=== PATIENT | female | born 1990 | race Caucasian/White ===

== ENCOUNTER → 2022-01-30 | Outpatient (CLI) | payer MEDICAID, SELFPAY ==
--- NOTE | 2022-01-30 13:15 | BI_ITS ---
MAMMOGRAPHY - BILATERAL SCREENING REASON FOR EXAM: Female, 31 years old. Routine annual screening examination. PERTINENT HISTORY: Mother with breast cancer. TECHNIQUE: Digital bilateral breast ida (3D mammographic acquisition) in the CC and MLO projections. 2-D mediolateral oblique (MLO) and craniocaudad (CC) views of both breasts were obtained. CAD: Full Field Digital Mammography with Computer Added Detection was performed. COMPARISON: None. Baseline examination. FINDINGS: Breast Composition: The breasts are extremely dense, which lowers the sensitivity of mammography. There are no dominant masses or suspicious calcifications. No other significant abnormalities are identified. BI/SCRN MAMM (CAD)W/IDA BILAT IMPRESSION: Negative screening mammogram. Yearly followup mammogram recommended. (A) ASSESSMENT CATEGORY: BIRADS Category 1: Negative. A letter regarding these results will be sent to the patient by the facility within 30 days. Approximately 10% of breast cancers are not detected by mammography. A normal mammogram should not delay biopsy of a clinically suspicious abnormality. [id number] Electronically Signed: Bolivar Hobbs MD at 13:51 EST ,
== END | disposition home or self-care (01) ==
LOC: OPBI 13:14
PROVIDERS: PCP Family Medicine; Visit Provider Registered Nurse
DX: Z12.31 Encounter for screening mammogram for malignant neoplasm of breast (principal)
CPT/HCPCS: 77063; 77067

== ENCOUNTER → 2022-12-04 | Outpatient (CLI) | payer MEDICAID, SELFPAY ==
[2022-12-04 11:20] LABS: T4 Free Direct 1.03 ng/dL (0.76-1.46); Thyroid Stim Hormone (TSH) 2.09 uIU/mL (0.358-3.74); Vitamin D,25 Hydroxy 47.1 ng/mL
[2022-12-09 22:06] LABS: HPV APTIMA, High Risk Negative (Negative)
== END | disposition home or self-care (01) ==
PROVIDERS: PCP Family Medicine; Referring Provider Registered Nurse; Visit Provider Registered Nurse
DX: R68.89 Other general symptoms and signs (principal); L65.9 Nonscarring hair loss, unspecified; Z12.4 Encounter for screening for malignant neoplasm of cervix
CPT/HCPCS: 36415; 82306; 84439; 84443; 87624; 88175; G0145

== ENCOUNTER → 2023-02-10 | Outpatient (CLI) | payer MEDICAID, SELFPAY ==
[2023-02-13 07:08] LABS: Chlamydia By Nucleic Acid AMP Negative (Negative); Gonococcus By Nucleic Acid AMP Negative (Negative)
== END | disposition home or self-care (01) ==
LOC: LABSPEC 13:06
PROVIDERS: Referring Provider Obstetrics & Gynecology; Visit Provider Obstetrics & Gynecology
DX: Z34.90 Encounter for supervision of normal pregnancy, unspecified, unspecified trimester (principal)
CPT/HCPCS: 87086; 87491; 87591

== ENCOUNTER → 2023-02-18 | Outpatient (CLI) | payer MEDICAID, SELFPAY ==
[2023-02-18 11:15] LABS: Absolute Lymphocyte Count 1.68 X10^3/uL (0.83-4.51); Absolute Neutrophil Count 6.7 X10^3/uL (2.0-7.7); Basophil# 0.03 X10^3/uL; Basophil% 0.3 % (0-1); Eosinophil# 0.07 X10^3/uL; Eosinophils% 0.8 % (0-5); Lymphocyte # 1.68 X10^3/ul (0.83-4.51); Lymphocyte % 18.4 % (19-41); Mean Corpuscular Volume 88.7 fL (81-99); Monocyte# 0.58 X10^3/uL; Monocyte% 6.4 % (0-10); NRBC Flagged by Analyzer 0 % (0-5); Neutrophil # 6.71 X10^3/uL (2.7-7.7); Neutrophil % 73.7 % (47-70); Platelet Count 274 K/mm3 (150-450); RBC Distribution Width CV 12.2 % (11.6-14.6); RBC Distribution Width SD 39.7 fl (35.1-43.9); Red Blood Count 4.51 M/mm3 (4.2-5.4); White Blood Count 9.1 K/mm3 (4.4-11.0)
[2023-02-18 11:57] LABS: NATERA MAILED SPECIMEN
[2023-02-18 12:17] LABS: HIV - WCH Non-Reactive (Nonreactive); Hepatitis B Surface Antigen Non-Reactive (Nonreactive); Hepatitis C Antibody Non-Reactive (Nonreactive); Rubella IgG Reactive (Nonreactive); Syphilis Antibodies Non-reactive
== END | disposition home or self-care (01) ==
PROVIDERS: Referring Provider Obstetrics & Gynecology; Visit Provider Obstetrics & Gynecology
DX: Z34.90 Encounter for supervision of normal pregnancy, unspecified, unspecified trimester (principal)
CPT/HCPCS: 36415; 85025; 86703; 86762; 86780; 86803; 86850; 86900; 86901; 87340

== ENCOUNTER → 2023-07-02 | Outpatient (CLI) | payer MEDICAID, SELFPAY ==
[2023-07-02 10:51] LABS: Absolute Lymphocyte Count 1.53 X10^3/uL (0.83-4.51); Absolute Neutrophil Count 9.7 X10^3/uL (2.0-7.7); Basophil# 0.04 X10^3/uL; Basophil% 0.3 % (0-1); Eosinophil# 0.21 X10^3/uL; Eosinophils% 1.7 % (0-5); Hematocrit 35.7 % (37-47); Hemoglobin 11.9 g/dL (12.0-15.0); Lymphocyte # 1.53 X10^3/ul (0.83-4.51); Lymphocyte % 12.4 % (19-41); Mean Corp Hgb Conc 33.3 g/dL (32-36); Mean Corpuscular Hgb 30.9 pg (27.0-32.0); Mean Corpuscular Volume 92.7 fL (81-99); Mean Platelet Vol. 9.6 fl (6.2-12.0); Monocyte# 0.77 X10^3/uL; Monocyte% 6.3 % (0-10); NRBC Flagged by Analyzer 0 % (0-5); Neutrophil # 9.65 X10^3/uL (2.7-7.7); Neutrophil % 78.5 % (47-70); Platelet Count 218 K/mm3 (150-450); RBC Distribution Width CV 12.9 % (11.6-14.6); RBC Distribution Width SD 43.8 fl (35.1-43.9); Red Blood Count 3.85 M/mm3 (4.2-5.4); White Blood Count 12.3 K/mm3 (4.4-11.0)
[2023-07-02 11:15] LABS: Glucose Challenge Gest 1H 50g 73 mg/dL (70-140)
[2023-07-02 11:45] LABS: ALB/GLOB Ratio 0.8 RATIO (0.9-2.4); AST(SGOT) 20 U/L (15-37); Alanine Aminotransfer ALT/SGPT 15 U/L (13-56); Albumin, Serum 2.7 g/dL (3.2-5.0); Alkaline Phosphatase 74 U/L (45-117); Anion Gap 4 (5-15); BUN 11 mg/dL (7-18); Calcium,Total 8.6 mg/dL (8.5-10.1); Chloride 109 mmol/L (98-107); Creatinine, Serum 0.65 mg/dL (0.55-1.02); EST Glomerular Filtration Rate 114 mL/min (>60); Est Glom Filt Rate - Afr Amer 138 mL/min (>60); Globulin 3.6 g/dL (2.2-4.2); Glucose 73 mg/dL (74-106); Potassium 3.8 mmol/L (3.5-5.1); Protein, Total 6.3 g/dL (6.4-8.2); Sodium Level 138 mmol/L (136-145)
[2023-07-02 14:48] LABS: Protein, Urine (Random) 62.5 mg/dL (<11.9); Protein:Creat Ratio 723 mg/g CRE (0-200)
== END | disposition home or self-care (01) ==
PROVIDERS: Nurse Practitioner Women's Health; PCP Family Medicine; Referring Provider Registered Nurse; Visit Provider Registered Nurse
DX: Z34.90 Encounter for supervision of normal pregnancy, unspecified, unspecified trimester (principal)
CPT/HCPCS: 36415; 80053; 82570; 82950; 84156; 85025; 87086

== ENCOUNTER 2023-07-12 17:48 | Observation (INO) | payer MEDICAID, SELFPAY ==
[2023-07-12] VITALS (32 sets, daily range): BP systolic 107–140; BP diastolic 58–85; PULSE 69–115; RESP 14–18; TEMP 36.4–37.4; O2SAT 96–99; BMI 24.5
--- NOTE | 2023-07-12 14:39 | CT_ITS ---
STUDY: CT ABDOMEN AND PELVIS WITHOUT CONTRAST REASON FOR EXAM: Female, 33 years old. Flank pain RADIATION DOSAGE (If Supplied By Facility): CTDIvol = ( 7.84 ) mGy, DLP = ( 391.62 ) mGycm TECHNIQUE: Transaxial images were obtained from the dome of the diaphragm to the symphysis pubis without oral contrast, and without intravenous contrast. Sagittal and coronal images were reconstructed. Individualized dose optimization techniques were used for this CT. COMPARISON: None. FINDINGS: Patient is , fetus shows no suspicious abnormalities The visualized lung bases are unremarkable. The visualized portions of the heart are within normal limits. Normal liver. Normal gallbladder and extrahepatic biliary system. Normal spleen. Normal pancreas. Normal bilateral adrenal glands. Normal-appearing left kidney. Right kidney shows hydronephrosis and hydroureter. There is a 3 mm nonobstructing right renal stone. Within the right pelvis there is an asymmetric calcific density on axial image 154, and coronal recon image 77 which could easily be within the distal right ureter. This is either a 4 mm stone or 2 separate 2 mm stones. Without IV contrast I cannot be certain that this is within the distal right ureter. It is not within the right ureter than the hydronephrosis is likely due to the . Normal visualized stomach. Normal small intestine. Normal colon. There is non-visualization of the appendix. Normal abdominal aorta. Normal inferior vena cava. Normal retroperitoneum. Normal urinary bladder. Normal abdominal wall. Normal osseous structures. CT/Abdomen/Pelvis without Cont IMPRESSION: There is right-sided hydronephrosis and hydroureter. The right ureter is dilated from the UPJ to the UVJ. There is an asymmetric calcification within the right hemipelvis which could be within the distal right ureter. However, the hydronephrosis could also simply be due to the patient''s being in an advanced state of Nonobstructing right nephrolithiasis No CT evidence of abnormality within the visualized fetus Electronically Signed: Jason Morgan MD at 15:33 EDT ,
[2023-07-12] MEDS: Lactated Ringers 1,000 ML 999 ML IV (14:50)
[2023-07-12 15:04] LABS: Bacteria 0 SEEN /hpf (None Seen); Mucous, Urine 0 SEEN /hpf (<or=2+); White Blood Cells 0 SEEN /hpf (0-5)
[2023-07-12 15:05] LABS: Glucose, Dipstick Normal (Normal); Ketone-Dipstick Negative (Negative); Leukocyte Esterase-Dipstick Negative /ul (Negative); Nitrite-Dipstick Negative (Negative); Occult Blood-Urine 10 /ul (Negative); Protein-Dipstick Negative (Negative); Specific Gravity, Urine 1.005 (1.002-1.030); Urine Bilirubin Dipstick Negative (Negative); Urine Urobilinogen Normal (Normal)
[2023-07-12 15:06] LABS: Absolute Lymphocyte Count 1.59 X10^3/uL (0.83-4.51); Absolute Neutrophil Count 13.8 X10^3/uL (2.0-7.7); Basophil# 0.05 X10^3/uL; Basophil% 0.3 % (0-1); Eosinophil# 0.05 X10^3/uL; Eosinophils% 0.3 % (0-5); Hematocrit 35.2 % (37-47); Hemoglobin 11.8 g/dL (12.0-15.0); Lymphocyte # 1.59 X10^3/ul (0.83-4.51); Lymphocyte % 9.7 % (19-41); Mean Corp Hgb Conc 33.5 g/dL (32-36); Mean Corpuscular Hgb 30.4 pg (27.0-32.0); Mean Corpuscular Volume 90.7 fL (81-99); Mean Platelet Vol. 9.2 fl (6.2-12.0); Monocyte# 0.88 X10^3/uL; Monocyte% 5.3 % (0-10); NRBC Flagged by Analyzer 0 % (0-5); Neutrophil # 13.76 X10^3/uL (2.7-7.7); Neutrophil % 83.7 % (47-70); Platelet Count 234 K/mm3 (150-450); RBC Distribution Width CV 12.3 % (11.6-14.6); RBC Distribution Width SD 40.5 fl (35.1-43.9); Red Blood Count 3.88 M/mm3 (4.2-5.4); White Blood Count 16.5 K/mm3 (4.4-11.0)
[2023-07-12 15:10] LABS: Color, Urine Straw (Yellow); Urine Clarity Clear (Clear)
[2023-07-12 15:21] LABS: Red Blood Cells-Urine 0-5 SEEN /hpf (0-5); Squamous Epithelial Cells - UA 0-5 SEEN /hpf (5-10)
[2023-07-12 15:22] LABS: Anion Gap 8 (5-15); BUN 15 mg/dL (7-18); BUN/Creat Ratio 16.9 RATIO (10-20); Calcium,Total 8.5 mg/dL (8.5-10.1); Chloride 108 mmol/L (98-107); Creatinine, Serum 0.88 mg/dL (0.55-1.02); EST Glomerular Filtration Rate 79 mL/min (>60); Est Glom Filt Rate - Afr Amer 96 mL/min (>60); Estimated Creatinine Clearance 83.35 ml/min; Glucose 85 mg/dL (74-106); Potassium 3.5 mmol/L (3.5-5.1); Sodium Level 138 mmol/L (136-145)
[2023-07-12] MEDS: fentaNYL 100 MCG/2 ML Ampul 50 MCG IV (15:26)
[2023-07-12] MEDS: Lactated Ringers 1,000 ML 250 ML IV (15:52)
[2023-07-12] MEDS: fentaNYL 100 MCG/2 ML Ampul 25 MCG IV (16:20)
--- NOTE | 2023-07-12 16:39 | HP.PCM.OB_ITS ---
HPI - General HPI Narrative ESMER GARCÍA, is a 33 F who presents with acute right flank pain. She was admitted overnight last weekend for pyelonephritis. Labs today are stable from last week however she developed increasing right flank pain and presented to the hospital today. She is afebrile and CT shows 2 areas of kidney stones on the right side the right upper nonobstructing but the right lower suspicious for obstruction after reviewing with urogynecology. Maternal Data Information UTE Calculator Estimated Delivery Date Method Current WG Current Estimate 09/18/23 LMP (Certain) 30w 2d PFSH PFSH Medical History Family history of breast cancer in mother Normal gynecologic examination depression Pre-conception counseling Home Medications ascorbic acid (vitamin C) 100 mg tablet 100 mg PO DAILY 12/04/22 [History Last Taken Unknown] cholecalciferol (vitamin D3) 25 mcg (1,000 unit) capsule 25 mcg PO DAILY 12/04/22 [History Last Taken Unknown] citalopram 30 mg capsule 20 mg PO DAILY 12/04/22 [History Last Taken Unknown] L.acidophilus-L.plantarum-L.rhamnosus 1 billion cell capsule,delay rel (Probiotic Pearls Women's) cap PO DAILY supplement 02/07/23 [History Last Taken Unknown] magnesium citrate 100 mg capsule 200 mg PO DAILY 02/07/23 [History Last Taken Unknown] multivit-min no.71-iron fum 28 mg-folate no.1 1 mg-dha 300 mg capsule (PNV- [place]) 1 cap PO DAILY preg 02/07/23 [History Last Taken Unknown] Allergy/AdvReac Type Severity Reaction Status Date / Time Penicillins Allergy Mild Hives Verified 07/12/23 14:06 Family History Mother Hypertension Heart disease Breast cancer Father Hypertension Heart disease Grandmother Hypertension Heart disease Grandfather Heart disease Stomach cancer Uncle Cancer, Onset Age: 55 Maternal -throat cancer Social History adopted: No household members: significant other and children number of children: 1 current occupational status: employed 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 current occupational exposures/hazards: No pets and animals: Yes pets and animals: dog(s) history of recent travel: No sexually active: Yes Smoking Status: Never smoker alcohol intake: never substance use type: does not use well-balanced diet: daily or most days caffeine: Yes Type: coffee Number of servings: 1 eating out: 1-3 times/week during the past year weight has: remained stable what type of physical activity do you participate in: aerobics and weight training frequency: 3-4 times per week duration: 30-45 minutes/day catrina/lutheran: None seatbelt use: always do you feel safe at home: Yes additional social history: Boyfriend-Michael History 2 Elective abortions Hx Para 1 Spontaneous abortions Hx # Term Pregnancies Ectopic pregnancies Hx # Pregnancies Multiple births # of living children 1 Past Pregnancies Del. Date Name GA/Weeks Outcome Route Bth Weight Infant Gen Labor Lgth Anesthesia Del Locatn Provider FOB 10/12/20 Maye 39 live - full term Female epidural [facility] Delivery Date: 10/12/20 Last Updated by: Lou Deleon No issues during . Did have hemorrhage Visit Details Expected Delivery Route/Plan Labor Preferences- CB/BF classes: no labor support person: Michael labor intervention preferences: [] pain management options preferred: try limited intervention cut cord/dad catch: cord : yes PP control planned: discussed discussed possible routes of delivery and associated risks: [] special requests: [] Plans Covid status: declines Flu vaccine: declines Tdap vaccine: Rhogam: both patient and negative LARC form signed: yes Problem list reviewed and updated with the most current plan of care details and appropriate orders placed. Relevant counseling for the gestational age provided. Continue routine care and follow up unless otherwise noted in visit notes/problem list details OB Flowsheet Initial Weight: 128 lb Date -?-?-?-?-?-?-?-?-?-?-?-?- EGA Weight BP Urine Prot -?-?-?-?-?-?-?-?-?-?-?-?- Glucose FHR FuHt Pres Dilation -?-?-?-?-?-?-?-?-?-?-?-?- Effaced St Visit Note 02/10/23 -?-?-?-?-?-?-?-?-?-?-?-?- 8w 4d 128 lb 6 oz (+6 oz) 113/68 -?-?-?-?-?-?-?-?-?-?-?-?- 168 -?-?-?-?-?-?-?-?-?-?-?-?- SM- CRL 2 cm con s with LMP 03/12/23 -?-?-?-?-?-?-?-?-?-?-?-?- 12w 6d 130 lb (+2 lb) 113/65 Negative -?-?-?-?-?-?-?-?-?-?-?-?- Negative 150 -?-?-?-?-?-?-?-?-?-?-?-?- JV- no lof, vagi nal bleeding, or cramping. normal NIPT (boy) 04/09/23 -?-?-?-?-?-?-?-?-?-?-?-?- 16w 6d 132 lb 4 oz (+4 lb 4 oz) 105/63 Negative -?-?-?-?-?-?-?-?-?-?-?-?- Negative 145 -?-?-?-?-?-?-?-?-?-?-?-?- JV- pt is gettin g a new job needs tb test. order placed for her to have that done at [facility]. no lof, vaginal bleeding, or cramping. anatomy scan ordered for 04/2205/09/23 -?-?-?-?-?-?-?-?-?-?-?-?- 21w 1d 137 lb 6 oz (+9 lb 6 oz) 118/72 Negative -?-?-?-?-?-?-?-?-?-?-?-?- Negative 158 21 -?-?-?-?-?-?-?-?-?-?-?-?- kw-no vb/crampin sara max. Discussed 28 week labs . believes FOB positive blood type. order given. 06/02/23 -?-?-?-?-?-?-?-?-?-?-?-?- 24w 4d 141 lb 4 oz (+13 lb 4 oz) 107/64 Negative -?-?-?-?-?-?-?-?-?-?-?-?- Negative 140 23 -?-?-?-?-?-?-?-?-?-?-?-?- LC- no vb/ctx/lo f. good fm. LC- no vb/ctx/lof. good fm.F OB blood type pending. glucola ordered. 07/02/23 -?-?-?-?-?-?-?-?-?-?-?-?- 28w 6d 145 lb (+17 lb) 104/62 1+ -?-?-?-?-?-?-?-?-?-?-?-?- Negative 136 28 -?-?-?-?-?-?-?-?-?-?-?-?- MH-NO VB. LOF. Noting blood in urine and some low pelvic pain/relieved with tylenol. UA+. Culture pending. Pre E labs. No headache/vision changes. Larc, 28 wk labs NST FHR Rate Baby A Baseline: 130 Variability:: Moderate Accelerations:: 15 x 15 Decelerations:: None NST Reactive:: Yes FHR Category:: Category I Uterine Activity:: irregular ROS Constitutional Constitutional: Reports systems reviewed and no addt'l complaints, except as documented Eyes Eyes: Denies change in vision ENT HEENT: Reports systems reviewed and no addt'l complaints, except as documented; Denies headache(s) Cardiovascular Cardiovascular: Reports systems reviewed and no addt'l complaints, except as documented; Denies chest pain or dyspnea Respiratory/Chest Respiratory/Chest: Reports systems reviewed and no addt'l complaints, except as documented Gastrointestinal Gastrointestinal: Reports systems reviewed and no addt'l complaints, except as documented; Denies abdominal pain Genitourinary Genitourinary: Reports systems reviewed and no addt'l complaints, except as documented, contractions Details: present (irregular), dysuria, movement Details: present and flank pain; Denies genital lesions Musculoskeletal Musculoskeletal: Reports systems reviewed and no addt'l complaints, except as documented Neurologic Neurologic: Reports systems reviewed and no addt'l complaints, except as documented Endocrine Endocrinology: Reports systems reviewed and no addt'l complaints, except as documented Vital Signs Vital Signs Vital Signs: 07/12/23 14:10 07/12/23 14:10 07/12/23 14:09 Temperature Temperature Source Temporal Pulse Rate 69 Respiratory Rate Blood Pressure 110/58 L BP Systolic 110 BP Diastolic 58 Pulse Ox 07/12/23 14:09 07/12/23 14:09 07/12/23 14:09 Temperature Temperature Source Pulse Rate 69 Respiratory Rate 14 Blood Pressure BP Systolic BP Diastolic Pulse Ox 97 07/12/23 14:09 Temperature 98.4 F Temperature Source Pulse Rate Respiratory Rate Blood Pressure BP Systolic BP Diastolic Pulse Ox Weight Weight: 147 lb 8 oz Body Mass Index (BMI) 24.5 Physical Exam Const alert, oriented x3, no apparent distress and healthy appearing HEENT normocephalic and moist oral mucous membranes Head and Scalp: atraumatic Neck full ROM, no lymphadenopathy, supple and thyroid normal General: trachea midline Lymph Lymphatic: no lymphadenopathy noted Chest inspection of chest normal Resp normal respiratory effort Cardio regular rate GI soft to palpation and non-tender GI Narrative: positive right CVA tenderness Inspection: gravid external exam normal Manual OB Exam: estimated gestational size appropriate and presentation cephalic Extremity normal to inspection General Extremity: Negative for edema Skin no rashes or lesions noted Neuro no focal motor deficits and deep tendon reflexes 2+ bilaterally Motor Exam: strength 5/5 throughout and clonus absent Psych mental status grossly normal Labs Labs Labs: Blood Type O NEGATIVE Antibody Screen NEGATIVE Hct 35.2 % (37-47) L Hgb 11.8 g/dL (12.0-15.0) L Pap Smear Negative Syphilis Total Ab Non-reactive Rubella IgG Antibody Reactive (Nonreactive) Hep Bs Antigen Non-Reactive (Nonreactive) Hepatitis C Antibody Non-Reactive (Nonreactive) Chlamydia DNA (VINEET) Negative (Negative) N.gonorrhoeae DNA (VINEET) Negative (Negative) HIV 1&2 Antibody Non-Reactive (Nonreactive) Glucose 1 Hr 50 gm 73 mg/dL (70-140) Assessment & Plan (1) Right nephrolithiasis: COMMENT: consult urogyn for stent placement (2) Placental abnormality: QUALIFIERS: Trimester: third trimester Qualified Code(s): O43.103 - Malformation of placenta, unspecified, third trimester COMMENT: [place]. q 4 week growth per MFM 67% (3) Rh negative status during : QUALIFIERS: Trimester: third trimester Qualified Code(s): O26.893 - Other specified related conditions, third trimester; Z67.91 - Unspecified blood type, Rh negative COMMENT: is Rh neg. No Rhogam. O neg. Rhogam PRN & 28 weeks (4) Supervision of high-risk : QUALIFIERS: Trimester: third trimester Qualified Code(s): O09.93 - Supervision of high risk , unspecified, third trimester COMMENT: [id number], UTE 09/18/23, PC Maye, SINA Rodriguez (5) : QUALIFIERS: Weeks of gestation: 28 weeks Qualified Code(s): Z3A.28 - 28 weeks gestation of COMMENT: nl anatomy, LR NIPT. Neg carrier testing (6) Depression: QUALIFIERS: Depression Type: unspecified Qualified Code(s): F32.A - Depression, unspecified COMMENT: celexa. counseling encouraged. (7) Anxiety: COMMENT: celexa/stable PLAN: Plan admit- give celestone, IVFs, s/p CT scan consulted urogyn and will place stent. Charges/Coding Visit Charges Office Visits / Consults: 15058 OV L3 Est 20min
[2023-07-12] MEDS: oxyCODONE 5 MG Tablet PO (17:04)
[2023-07-12] MEDS: Betamethasone/Betamethasone 30 MG/5 ML Vial 12 MG IM (17:14)
[2023-07-12] MEDS: Ceftriaxone 1 GM/50 ML BAG IV (17:14)
--- NOTE | 2023-07-12 17:40 | HP.PCM_ITS ---
[facility] - General General Date of Service: 07/12/23 Chief Complaint: flank pain [facility] Narrative ESMER GARCÍA, is a 33 F who presents with uncontrolled flank pain. She had a recent admission in an outlying institution for acute pyelonephritis on the right side. She was evaluated today and had a CT scan revealing a distal right ureteral calculus with significant hydronephrosis and hydroureter on that side. We discussed drainage of that kidney and the potential for infected urine behind the obstruction. She understands and agrees to proceed with ureteral stent in sertion under anesthesia. [facility] Medical History (Updated 07/12/23 @ 17:[address] Tonya Blanchard MD) Family history of breast cancer in mother Normal gynecologic examination depression Pre-conception counseling Ureteral stone with hydronephrosis Home Medications ascorbic acid (vitamin C) 100 mg tablet 100 mg PO DAILY 12/04/22 [History Last Taken Unknown] cholecalciferol (vitamin D3) 25 mcg (1,000 unit) capsule 25 mcg PO DAILY 12/04/22 [History Last Taken Unknown] citalopram 30 mg capsule 20 mg PO DAILY 12/04/22 [History Last Taken Unknown] L.acidophilus-L.plantarum-L.rhamnosus 1 billion cell capsule,delay rel (Probiotic Pearls Women's) cap PO DAILY supplement 02/07/23 [History Last Taken Unknown] magnesium citrate 100 mg capsule 200 mg PO DAILY 02/07/23 [History Last Taken Unknown] multivit-min no.71-iron fum 28 mg-folate no.1 1 mg-dha 300 mg capsule (PNV- [place]) 1 cap PO DAILY preg 02/07/23 [History Last Taken Unknown] Allergy/AdvReac Type Severity Reaction Status Date / Time Penicillins Allergy Mild Hives Verified 07/12/23 14:06 Family History Mother Hypertension Heart disease Breast cancer Father Hypertension Heart disease Grandmother Hypertension Heart disease Grandfather Heart disease Stomach cancer Uncle Cancer, Onset Age: 55 Maternal -throat cancer Social History adopted: No household members: significant other and children number of children: 1 current occupational status: employed 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 current occupational exposures/hazards: No pets and animals: Yes pets and animals: dog(s) history of recent travel: No sexually active: Yes Smoking Status: Never smoker alcohol intake: never substance use type: does not use well-balanced diet: daily or most days caffeine: Yes Type: coffee Number of servings: 1 eating out: 1-3 times/week during the past year weight has: remained stable what type of physical activity do you participate in: aerobics and weight training frequency: 3-4 times per week duration: 30-45 minutes/day catrina/baptism: None seatbelt use: always do you feel safe at home: Yes additional social history: Boyfriend-Michael AVILA Constitutional Constitutional: Denies chills or fever(s) Eyes Eyes: Reports systems reviewed and no addt'l complaints, except as documented ENT HEENT: Reports systems reviewed and no addt'l complaints, except as documented Cardiovascular Cardiovascular: Denies chest pain or dyspnea Respiratory/Chest Respiratory/Chest: Denies chest tightness, cough or dyspnea Gastrointestinal Gastrointestinal: Reports abdominal pain and nausea; Denies vomiting Genitourinary Genitourinary: Reports abdominal discomfort, flank pain and urinary urgency; De nies dysuria or hematuria Musculoskeletal Musculoskeletal: Reports systems reviewed and no addt'l complaints, except as documented Integumentary Integumentary: Reports systems reviewed and no addt'l complaints, except as documented Neurologic Neurologic: Reports systems reviewed and no addt'l complaints, except as documented Psychiatric Psychiatric: Reports systems reviewed and no addt'l complaints, except as documented Endocrine Endocrinology: Reports systems reviewed and no addt'l complaints, except as documented Hematologic/Lymphatic Hematologic/Lymphatic: Reports systems reviewed and no addt'l complaints, except as documented Allergic/Immunologic Allergic/Immunologic: Reports systems reviewed and no addt'l complaints, except as documented Vital Signs Vital Signs Vital Signs: 07/12/23 14:10 07/12/23 14:10 07/12/23 14:09 Temperature Temperature Source Temporal Pulse Rate 69 Respiratory Rate Blood Pressure 110/58 L BP Systolic 110 BP Diastolic 58 Pulse Ox 07/12/23 14:09 07/12/23 14:09 07/12/23 14:09 Temperature Temperature Source Pulse Rate 69 Respiratory Rate 14 Blood Pressure BP Systolic BP Diastolic Pulse Ox 97 07/12/23 14:09 07/12/23 17:20 07/12/23 17:20 Temperature 98.4 F Temperature Source Pulse Rate 83 Respiratory Rate Blood Pressure BP Systolic BP Diastolic Pulse Ox 98 07/12/23 17:25 07/12/23 17:25 07/12/23 17:30 Temperature Temperature Source Pulse Rate 83 82 Respiratory Rate Blood Pressure BP Systolic BP Diastolic Pulse Ox 98 07/12/23 17:30 07/12/23 17:35 07/12/23 17:35 Temperature Temperature Source Pulse Rate 93 Respiratory Rate Blood Pressure BP Systolic BP Diastolic Pulse Ox 98 97 Weight Weight: 66.905 kg Body Mass Index (BMI) 24.5 Physical Exam Const alert, oriented x3 and healthy appearing HEENT normocephalic, head/scalp atraumatic, hearing grossly normal bilaterally, exte rnal ears normal, external nose normal and moist oral mucous membranes Eyes General Eye: normal appearance of both eyes Neck supple General: normal visual inspection and trachea midline Lymph Lymphatic: no lymphedema noted Chest inspection of chest normal Resp normal respiratory effort, normal air movement and no retractions Cardio regular rate and regular rhythm GI soft to palpation GI Narrative: Gravid Bladder / Kidney Exam: CVA tenderness right Back/Spine General Back: CVA tenderness right Extremity normal to inspection Skin no rashes or lesions noted, no jaundice, no petechiae and no mottling Neuro oriented x3, CN's II-XII intact bilaterally and moves all extremities Psych mental status grossly normal and thought process normal Results Lab / Micro Data 07/12/23 14:50 07/12/23 14:50 Labs: Laboratory Results - last 24 hr 07/12/23 14:50: WBC 16.5 H, RBC 3.88 L, Hgb 11.8 L, Hct 35.2 L, MCV 90.7, MCH 30.4, MCHC 33.5, RDW Std Deviation 40.5, RDW Coeff of [place]ina 12.3, Plt Count 234, MPV 9.2, Immature Gran % (Auto) 0.700, Neut % (Auto) 83.7 H, Lymph % (Auto) 9.7 L, Callahan % (Auto) 5.3, Eos % (Auto) 0.3, Baso % (Auto) 0.3, Absolute Neuts (auto) 13.8 H, Absolute Lymphs (auto) 1.59, Nucleated RBC % 0, Sodium 138, Potassium 3.5, Chloride 108 H, Carbon Dioxide 22.0, Anion Gap 8, BUN 15, Creatinine 0.88, Estim Creat Clear Calc 83.35, Est GFR (MDRD) Af Amer 96, Est GFR (MDRD) Non-Af 79, BUN/Creatinine Ratio 16.9, Glucose 85, Calcium 8.5, Urine Color Straw, Urine Clarity Clear, Urine pH 7.0, Ur Specific [place] 1.005, Urine Protein Negative, Urine Glucose (UA) Normal, Urine Ketones Negative, Urine Occult Blood 10 H, Urine Nitrite Negative, Urine Bilirubin Negative, Urine Urobilinogen Normal, Ur Leukocyte Esterase Negative, Urine RBC 0-5 SEEN, Urine WBC 0 SEEN, Ur Squamous Epith Cells 0-5 SEEN, Urine Bacteria 0 SEEN, Urine Mucus 0 SEEN Imaging Radiology Impression Abdomen/Pelvis CT 07/12/23 14:39 IMPRESSION: There is right-sided hydronephrosis and hydroureter. The right ureter is dilated from the UPJ to the UVJ. There is an asymmetric calcification within the right hemipelvis which could be within the distal right ureter. However, the hydronephrosis could also simply be due to the patient''s being in an advanced state of Nonobstructing right nephrolithiasis No CT evidence of abnormality within the visualized fetus Electronically Signed: Jason Morgan MD at 15:33 EDT , Assessment & Plan Assessment/Plan (1) Right nephrolithiasis: (2) Ureteral stone with hydronephrosis: PLAN: Plan Proceed with cystoscopy and right ureteral stent insertion Continue supportive care and antibiotics, repeat culture following stent insertion We will discuss management of her distal stone after her collecting system has been drained and there is no evidence of infection Informed consent was obtained
--- NOTE | 2023-07-12 17:45 | OP.PCM_ITS ---
Report of Operation Date of Procedure: 07/12/23 Pre-Operative Diagnosis: Right distal ureteral calculus with hydronephrosis Post-Operative Diagnosis: Same Surgery/Procedure Performed:: Cystoscopy with right ureteral stent insertion Surgeon: Tonya Blanchard Type of Anesthesia: MAC Specimen's removed: Urine for culture Description of Procedure: The patient is a 33-year-old 30-week gravid female with a large distal obstructing right ureteral calculus with significant hydroureteronephrosis who presents for right ureteral stent insertion. Informed consent was obtained. The patient was taken to the operating room placed on the operating room table. Anesthesia monitored the head, neck, airway, IV access and vital signs throughout the case. Once anesthesia was appropriately administered, she was placed into dorsolithotomy position was prepped and draped in usual sterile fashion. The cystoscope was inserted through the urethra under direct visualization into the urinary bladder. The bladder was visualized revealing no evidence of mass, erythema, ulceration or foreign body. The right ureteral orifice was intubated carefully with a 0.035 Glidewire was advanced into the renal pelvis as seen on fluoroscopy. A 6 Alban[place] 24 cm JJ stent was carefully placed over the wire with good positioning in the renal pelvis as well as the urinary bladder. At this time the bladder was emptied with urine sent for culture, and the cystoscope was removed. She was awakened and taken to the recovery room where her baby will be checked immediately and [facility]. There were no complications during the procedure. Grafts/Implants Used: 6 Albanian by 24 cm JJ stent Complications None Admit VTE Documentation VTE Present on Admission: Yes VTE Mechan Device Prophylaxis: SCD's VTE Pharm Prophylaxis ordered?: No Reason prophylaxis not ordered:: Treatment Not Indicated
[2023-07-12] MEDS: Lactated Ringers 1,000 ML 15 ML IV (18:03)
--- NOTE | 2023-07-12 18:56 | DCINST_ITS ---
Discharge Instructions Diet Discharge Diet: No restrictions Activity Discharge Activity: Return to Normal Activity Dressing / Incision Call your doctor if you observe: Fever of 101 or Higher, Inability to urinate and Inability to have a bowel movement Additional Dressing/Incision Instructions:: Blood in the urine is ok, please call if you are passing clots. Follow Up Care Please Follow Up With: Tonya Blanchard MD When: The office will call the patient to make follow up arrangements. Test Results: Test results from this visit will be discussed in further detail at your follow- up appointment, if applicable. Discharge Plan Admission Admit Date/Time: 07/12/23 17:48 Attending Provider: Sue Resendiz Primary Care Provider: Carolann Nicole Discharge Orders/Prescriptions Prescriptions: New oxycodone-acetaminophen [Percocet] 5-325 mg tablet 1 tab PO Q8H PRN (Reason: pain) 3 Days Qty: 10 0RF cephalexin [cephalexin] 500 mg capsule 500 mg PO 3XD 7 Days Qty: 21 0RF Continued cholecalciferol (vitamin D3) 25 mcg (1,000 unit) capsule 25 mcg PO DAILY ascorbic acid (vitamin C) 100 mg tablet 100 mg PO DAILY citalopram 30 mg capsule 20 mg PO DAILY magnesium citrate 100 mg capsule 200 mg PO DAILY PNV-[place] 28-1-300 mg capsule 1 cap PO DAILY Probiotic Pearls Women's 1 billion cell capsule,delayed release(DR/EC) PO DAILY Referrals / Follow Up: Carolann Nicole MD [Primary Care Provider] - Disposition Disposition (needs filled in before D/C Order can be placed): Home, Self Care
[2023-07-12] MEDS: 0.9% Saline Lock 10 ML Syringe IV (20:20)
[2023-07-12] MEDS: Lactated Ringers 1,000 ML 200 ML IV (20:22)
[2023-07-13 00:02] VITALS: BP 98/55; PULSE 77; PULSE 81; RESP 18; TEMP 37.4; O2SAT 97
[2023-07-13] MEDS: Lactated Ringers 1,000 ML 200 ML IV ×2 (01:26→06:15)
[2023-07-13 01:33] VITALS: BP 90/55; PULSE 80; RESP 16; TEMP 36.8; O2SAT 97
[2023-07-13 04:30] VITALS: BP 99/55; PULSE 67; PULSE 70; RESP 16; TEMP 36.8; O2SAT 97
[2023-07-13 07:34] VITALS: RESP 16; TEMP 37.2
[2023-07-13 07:35] VITALS: BP 105/54; PULSE 77; PULSE 81; O2SAT 96
[2023-07-13 07:39] LABS: Absolute Lymphocyte Count 1.35 X10^3/uL (0.83-4.51); Absolute Neutrophil Count 11.3 X10^3/uL (2.0-7.7); Basophil# 0.02 X10^3/uL; Basophil% 0.2 % (0-1); Hematocrit 30.8 % (37-47); Hemoglobin 10.4 g/dL (12.0-15.0); Lymphocyte # 1.35 X10^3/ul (0.83-4.51); Lymphocyte % 10.2 % (19-41); Mean Corp Hgb Conc 33.8 g/dL (32-36); Mean Corpuscular Hgb 30.6 pg (27.0-32.0); Mean Corpuscular Volume 90.6 fL (81-99); Mean Platelet Vol. 9.3 fl (6.2-12.0); Monocyte# 0.48 X10^3/uL; Monocyte% 3.6 % (0-10); NRBC Flagged by Analyzer 0 % (0-5); Neutrophil # 11.27 X10^3/uL (2.7-7.7); Neutrophil % 85.3 % (47-70); Platelet Count 215 K/mm3 (150-450); RBC Distribution Width CV 12.3 % (11.6-14.6); RBC Distribution Width SD 40.5 fl (35.1-43.9); White Blood Count 13.2 K/mm3 (4.4-11.0)
[2023-07-13 07:51] LABS: Anion Gap 5 (5-15); BUN 7 mg/dL (7-18); BUN/Creat Ratio 12.4 RATIO (10-20); Calcium,Total 8.3 mg/dL (8.5-10.1); Chloride 110 mmol/L (98-107); Creatinine, Serum 0.56 mg/dL (0.55-1.02); EST Glomerular Filtration Rate 133 mL/min (>60); Est Glom Filt Rate - Afr Amer 161 mL/min (>60); Estimated Creatinine Clearance 130.98 ml/min; Glucose 140 mg/dL (74-106); Potassium 3.8 mmol/L (3.5-5.1); Sodium Level 138 mmol/L (136-145)
[2023-07-13 08:04] VITALS: BP 110/85
--- NOTE | 2023-07-13 08:41 | PN.OBGYN_ITS ---
Subjective Subjective patient presented overnight with right flank pain no vaginal bleeding or abnormal discharge, had stent placed by urogyn. doing well since minimal discomfrot. Objective Data Objective Data Vital Signs: Vital Signs Temp Pulse Resp BP Pulse Ox O2 Del Method 99.0 F 81 16 105/54 L 96 Room Air 07/13/23 07:34 07/13/23 07:35 07/13/23 07:34 07/13/23 07:35 07/13/23 07:35 07/12/23 19:05 Oxygen Delivery Method Room Air Weight: 147 lb 8 oz Body Mass Index (BMI) 24.5 Intake & Output: Intake and Output for Last 24 Hours 07/11/23 07/12/23 07/13/23 23:59 23:59 23:59 Intake Total 2091.67 / 2091.67 1963.33 / 1963.33 Output Total 1050 / 1050 1999 / 1999 Balance 1041.67 / 1041.67 -36.67 / -36.67 Lab / Micro Data 07/13/23 07:29 07/13/23 07:29 Labs: Laboratory Results - last 24 hr 07/12/23 14:50: WBC 16.5 H, RBC 3.88 L, Hgb 11.8 L, Hct 35.2 L, MCV 90.7, MCH 30.4, MCHC 33.5, RDW Std Deviation 40.5, RDW Coeff of Corina 12.3, Plt Count 234, MPV 9.2, Immature Gran % (Auto) 0.700, Neut % (Auto) 83.7 H, Lymph % (Auto) 9.7 L, Taliaferro % (Auto) 5.3, Eos % (Auto) 0.3, Baso % (Auto) 0.3, Absolute Neuts (auto) 13.8 H, Absolute Lymphs (auto) 1.59, Nucleated RBC % 0, Sodium 138, Potassium 3.5, Chloride 108 H, Carbon Dioxide 22.0, Anion Gap 8, BUN 15, Creatinine 0.88, Estim Creat Clear Calc 83.35, Est GFR (MDRD) Af Amer 96, Est GFR (MDRD) Non-Af 79, BUN/Creatinine Ratio 16.9, Glucose 85, Calcium 8.5, Urine Color Straw, Urine Clarity Clear, Urine pH 7.0, Ur Specific [place] 1.005, Urine Protein Negative, Urine Glucose (UA) Normal, Urine Ketones Negative, Urine Occult Blood 10 H, Urine Nitrite Negative, Urine Bilirubin Negative, Urine Urobilinogen Normal, Ur Leukocyte Esterase Negative, Urine RBC 0-5 SEEN, Urine WBC 0 SEEN, Ur Squamous Epith Cells 0-5 SEEN, Urine Bacteria 0 SEEN, Urine Mucus 0 SEEN 07/13/23 07:29: WBC 13.2 H, RBC 3.40 L, Hgb 10.4 L, Hct 30.8 L, MCV 90.6, MCH 30.6, MCHC 33.8, RDW Std Deviation 40.5, RDW Coeff of Corina 12.3, Plt Count 215, MPV 9.3, Immature Gran % (Auto) 0.700, Neut % (Auto) 85.3 H, Lymph % (Auto) 10.2 L, Taliaferro % (Auto) 3.6, Eos % (Auto) 0.0, Baso % (Auto) 0.2, Absolute Neuts (auto) 11.3 H, Absolute Lymphs (auto) 1.35, Nucleated RBC % 0, Sodium 138, Potassium 3.8, Chloride 110 H, Carbon Dioxide 23.0, Anion Gap 5, BUN 7, Creatinine 0.56, Estim Creat Clear Calc 130.98, Est GFR (MDRD) Af Amer 161, Est GFR (MDRD) Non-Af 133, BUN/Creatinine Ratio 12.4, Glucose 140 H, Calcium 8.3 L Radiography Diagnostic Testing: Radiology Impression Abdomen/Pelvis CT 07/12/23 14:39 IMPRESSION: There is right-sided hydronephrosis and hydroureter. The right ureter is dilated from the UPJ to the UVJ. There is an asymmetric calcification within the right hemipelvis which could be within the distal right ureter. However, the hydronephrosis could also simply be due to the patient''s being in an advanced state of Nonobstructing right nephrolithiasis No CT evidence of abnormality within the visualized fetus Electronically Signed: Jason Morgan MD at 15:33 EDT , ROS Constitutional Constitutional: Reports systems reviewed and no addt'l complaints, except as documented ENT HEENT: Reports systems reviewed and no addt'l complaints, except as documented Cardiovascular Cardiovascular: Reports systems reviewed and no addt'l complaints, except as documented Respiratory/Chest Respiratory/Chest: Reports systems reviewed and no addt'l complaints, except as documented Gastrointestinal Gastrointestinal: Reports as per HPI Genitourinary Genitourinary: Reports as per HPI Musculoskeletal Musculoskeletal: Reports systems reviewed and no addt'l complaints, except as documented Integumentary Integumentary: Reports systems reviewed and no addt'l complaints, except as documented Neurologic Neurologic: Reports systems reviewed and no addt'l complaints, except as documented Physical Exam Const alert, oriented x3 and no apparent distress HEENT Head and Scalp: normocephalic and atraumatic Neck full ROM and no lymphadenopathy Chest inspection of chest normal Resp normal respiratory effort GI GI Narrative: gravid, abdomen nontender, AGA Manual OB Exam: dilated .5, effaced 0 and station -4 NST FHR Rate Baby A Baseline: 140 Variability:: Moderate Accelerations:: 15 x 15 Decelerations:: None NST Reactive:: Yes FHR Category:: Category I Uterine Activity:: irritability Assessment & Plan (1) Ureteral stone with hydronephrosis: COMMENT: has planned laser lithotripsy (2) Right nephrolithiasis: COMMENT: consult urogyn for stent placement PLAN: Plan monitored overnight and stable, some contracitons but no signiicant dilation. will dc home and fu for celestone and fu with urogyn Charges/Coding Visit Charges Inpatient E&M: 81521 Disch Hosp Multi Select Codes Visit Charges Office Visit/Consults: 26276 OV L3 Est 20min Urinary/Genital Urinary/Genital CPT Codes: 71654-55 non-stress test Interp
[2023-07-13] MEDS: Citalopram 20 MG Tablet PO (09:14)
== END 2023-07-13 11:05 | disposition home or self-care (01) ==
LOC: WPOUT 18:11 → WP 18:11
PROVIDERS: Obstetrics & Gynecology; Admitting Provider Urology; PCP Family Medicine; Visit Provider Advanced Practice Midwife
PROC: (CPT 52332; principal; 2023-07-12 17:45)
DX: O99.891 Other specified diseases and conditions complicating pregnancy (principal); N13.2 Hydronephrosis with renal and ureteral calculous obstruction; Z3A.30 30 weeks gestation of pregnancy; O99.343 Other mental disorders complicating pregnancy, third trimester; O43.103 Malformation of placenta, unspecified, third trimester; F32.A Depression, unspecified; F41.9 Anxiety disorder, unspecified; Z79.899 Other long term (current) drug therapy
CPT/HCPCS: 52332; 00910; 96365; 96375; 96376; 96361 ×2; J0702; J2405; 36415; 59025; 59050; 74176; 76000; 80048; 81001; 85025; 87086; 96372; 99221; J7120; A4216; G0378

== ENCOUNTER 2023-07-13 16:29 | Outpatient (CLI) | payer MEDICAID, SELFPAY ==
[2023-07-13 16:52] VITALS: BP 106/59; PULSE 81; TEMP 37.3; O2SAT 97
[2023-07-13] MEDS: Betamethasone/Betamethasone 30 MG/5 ML Vial 12 MG IM (16:57)
--- NOTE | 2023-07-18 03:00 | OB.TRI.PN ---
Progress Notes Date of Service: 07/13/23 Progress Note: celestone given for prematurity for recent kidney stone
== END 2023-07-13 17:03 | disposition home or self-care (01) ==
LOC: WPOUT 16:39 → WP 16:40
PROVIDERS: PCP Family Medicine; Visit Provider Obstetrics & Gynecology
DX: O99.891 Other specified diseases and conditions complicating pregnancy (principal); N20.0 Calculus of kidney; Z3A.00 Weeks of gestation of pregnancy not specified
CPT/HCPCS: 96372; 99221; G0378; J0702

== ENCOUNTER 2023-07-31 06:19 | Day surgery (SDC) | payer MEDICAID, SELFPAY ==
[2023-07-31] VITALS (15 sets, daily range): BP systolic 109–117; BP diastolic 55–73; PULSE 72–109; RESP 16; TEMP 36.3–37.1; O2SAT 96–100; BMI 24.2
[2023-07-31] MEDS: Lactated Ringers 1,000 ML 15 ML IV (06:41)
[2023-07-31 07:12] LABS: Hematocrit 34.2 % (37-47); Hemoglobin 11.5 g/dL (12.0-15.0); Mean Corp Hgb Conc 33.6 g/dL (32-36); Mean Corpuscular Hgb 30.5 pg (27.0-32.0); Mean Corpuscular Volume 90.7 fL (81-99); Mean Platelet Vol. 9.4 fl (6.2-12.0); Platelet Count 232 K/mm3 (150-450); RBC Distribution Width CV 12.4 % (11.6-14.6); RBC Distribution Width SD 40.7 fl (35.1-43.9); Red Blood Count 3.77 M/mm3 (4.2-5.4); White Blood Count 9.8 K/mm3 (4.4-11.0)
[2023-07-31 07:21] LABS: Prothrombin Time (Protime)PT. 13.2 SECONDS (11.7-14.9)
[2023-07-31 07:22] LABS: Partial Thromboplast Time 30.1 Seconds (24.1-36.2)
--- NOTE | 2023-07-31 08:14 | EX.PCM.DISCH ---
Discharge Instructions Diet Discharge Diet: No restrictions Activity Discharge Activity: Return to Normal Activity Dressing / Incision Call your doctor if you observe: Fever of 101 or Higher, Inability to urinate and Inability to have a bowel movement Follow Up Care Please Follow Up With: Tonya Blanchard MD When: Contact Dr. West with any concerns about the /baby. Test Results: Test results from this visit will be discussed in further detail at your follow-up appointment, if applicable. Discharge Plan Admission Attending Provider: Tonya Blanchard Primary Care Provider: Carolann Nicole Instructions Print Language: Citizen Of [place] Discharge Orders/Prescriptions Prescriptions: New oxycodone-acetaminophen [Percocet] 5-325 mg tablet 1 tab PO Q8H PRN (Reason: pain) 3 Days Qty: 10 0RF cephalexin 500 mg capsule 500 mg PO Q12 3 Days Qty: 6 0RF Continued cholecalciferol (vitamin D3) 25 mcg (1,000 unit) capsule 25 mcg PO DAILY citalopram 30 mg capsule 30 mg PO DAILY magnesium citrate 100 mg capsule 200 mg PO DAILY PNV-[place] 28-1-300 mg capsule 1 cap PO DAILY Probiotic Pearls Women's 1 billion cell capsule,delayed release(DR/EC) 1 cap PO DAILY Referrals / Follow Up: Carolann Nicole MD [Primary Care Provider] - Disposition Disposition (needs filled in before D/C Order can be placed): Home, Self Care
--- NOTE | 2023-07-31 08:17 | OP.PCM_ITS ---
Report of Operation Date of Procedure: 07/31/23 Pre-Operative Diagnosis: Right ureteral calculus with hydronephrosis Post-Operative Diagnosis: Same Surgery/Procedure Performed:: Cystoscopy, right ureteroscopy, laser lithotripsy, stone basket extraction, right ureteral stent change Surgeon: Tonya Blanchard Type of Anesthesia: Spinal Specimen's removed: Stone fragments Description of Procedure: The patient is a 33-year-old 33-week gravid female with a distal ureteral stone in the right ureter. She presents for surgical intervention. Informed consent was obtained. The baby was monitored preoperatively and there were no signs concerning findings. She was taken to the operating room and placed on the operating room table. Anesthesia performed a spinal and she was placed into dorsolithotomy position. She was prepped and draped in usual sterile fashion. The cystoscope was inserted through the urethra under direct visualization into the urinary bladder. The ureteral stent was observed at the right ureteral orifice. A 0.035 Glidewire was passed alongside the stent into the renal pelvis as confirmed with 1 fluoroscopic image. The ureteral stent was then grasped and removed leaving the wire in place. The semirigid ureteroscope was then used to cannulate the distal right ureter. The large stone was easily identified and broken into small pieces which were then removed with a basket. When all fragments were removed, there was no identifiable injury to the ureter. There was ureteral edema. The cystoscope was then used to place a 4.5 Dominican by 24 cm JJ stent over the wire with good positioning in the renal pelvis as well as the urinary bladder. This was confirmed with 1 fluoroscopic image. The string was left attached to the stent and was secured to the right inner thigh using Cavilon and Steri-Strips. The patient was then taken to the recovery room in good condition. There were no complications during the procedure. Grafts/Implants Used: 4.5 Dominican x 24 cm JJ stent Complications None Admit VTE Documentation VTE Present on Admission: Yes VTE Mechan Device Prophylaxis: SCD's VTE Pharm Prophylaxis ordered?: No Reason prophylaxis not ordered:: Treatment Not Indicated
[2023-07-31] MEDS: Cefazolin 2 GM in 0.9% Normal Saline (100mL Bag) 100 ML IV (08:21)
--- NOTE | 2023-07-31 08:25 | CALC_PTH ---
PATIENT: ESMER GARCÍA LOC: [facility] [place] U#:[id number] AGE/SX: 33/F ROOM: RE07/31/[address]: Dr. Tonya Blanchard MD : 1990 BED: DIS: 07/31/2023 SPEC #: [id number] RECD: 07/31/23 09:33 STATUS: ERIC MCKEON #: [id number] MARSHA: 07/31/23 08:[address]: Tonya Blanchard DEPT: SURGICAL PATHOLOGY RECD BY: Rachael Arzate ENTERED: 07/31/23 12:15 SP TYPE: Calculi OTHR DR: Dr. Carolann Nicole MD Tissues: CALCULI Procedures: Surgery Specimen Level I HEADER OPERATION: Cysot, right ureteroscopy, laser lithotripsy, right stent change PRE-OP DIAGNOSIS: Right ureteral calculus TISSUE SUBMITTED: Right ureteral calculus GROSS DIAGNOSIS Right urethral calculus, removal: Fragments of unremarkable calculus (gross diagnosis only). AM/ 08/01/2023 COMMENT If chemical analysis is requested on this specimen, please notify the laboratory. GROSS DESCRIPTION Received without fixative labeled with the patient's name and designated right ureteral calculi. The specimen consists of two irregular fragments of light grewal calculi measuring in aggregate 0.6 x 0.5 x 0.1 cm. The entire specimen is submitted for stone analysis. The entire specimen is saved if stone analysis is requested. / 07/31/2023 CPT: 20908
--- NOTE | 2023-07-31 09:25 | SUR.PHASEI ---
OBRN AT BEDSIDE TO MONITOR HEART TONES, PER OBRN DOCUMENTATION WILL BE DONE BY HER.
--- NOTE | 2023-07-31 10:40 | SUR.PHASEII ---
Patient still being monitored in OB. Spinal is wearing off appropriately. able to move both legs. able to turn side to side. brief placed. This nurse spoke with anesthesia and dr. early. patient to void before dc and spinal to be worn off before dc. dr. early wants NST to be performed for 1hr in WP. IV in left hand maintained until dc.
[2023-07-31] MEDS: Terbutaline 1 MG/ML Vial 0.25 MG SC (15:18)
--- NOTE | 2023-07-31 16:58 | OB.TRI.PN_ITS ---
Progress Notes Date of Service: 07/31/23 Progress Note: Patient presents for triage evaluation secondary to post surgical stent placement and lithotripsy FHT: 140 Moderate variability reactive no decelerations category I tracing [place]: q 1-6 Contractions Assessment and plan: contractions. 1 cm no cervical change after monitoring, patient not feeling them, likely iritability Reactive NST, reassuring maternal and status patient discharged to home to follow-up as scheudled labor precautions reviewed . See problem list details for additional plan information. Laboratory Studies: Laboratory Tests 07/31/23 Range/Units 07:05 WBC 9.8 (4.4-11.0) K/mm3 RBC 3.77 L (4.2-5.4) M/mm3 Hgb 11.5 L (12.0-15.0) g/dL Hct 34.2 L (37-47) % MCV 90.7 (81-99) fL MCH 30.5 (27.0-32.0) pg MCHC 33.6 (32-36) g/dL RDW Std Deviation 40.7 (35.1-43.9) fl RDW Coeff of Corina 12.4 (11.6-14.6) % Plt Count 232 (150-450) K/mm3 MPV 9.4 (6.2-12.0) fl PT 13.2 (11.7-14.9) SECONDS INR 1.0 APTT 30.1 (24.1-36.2) Seconds Charges/Coding Procedures Urinary/Genital 52xxx-59xxx: 88939-13 non-stress test Interp
== END 2023-07-31 16:40 | disposition home or self-care (01) ==
LOC: SDC 06:20 → AC 06:21 → WP 10:37
PROVIDERS: Anesthesiology; PCP Family Medicine; Referring Provider Urology; Visit Provider Urology
PROC: (CPT 52356; principal; 2023-07-31 08:15)
DX: N13.2 Hydronephrosis with renal and ureteral calculous obstruction (principal); F41.9 Anxiety disorder, unspecified; F32.A Depression, unspecified; Z79.899 Other long term (current) drug therapy
CPT/HCPCS: 52356; 00873; 96365; 96366 ×5; 59025; 59050; 76000; 82360; 85027; 85610; 85730; 88300; 96372; 99221; J7120; G0378

== ENCOUNTER 2023-08-03 11:28 | Emergency (ER) | payer MEDICAID, SELFPAY ==
[2023-08-03 11:28] VITALS: BP 130/76; PULSE 89; RESP 16; TEMP 36.1; O2SAT 99; BMI 24.2
--- NOTE | 2023-08-03 11:53 | EDS_ITS ---
HPI History of Present Illness Chief Complaint: Headache Narrative Narrative: 33-year-old female, G2, P1 at approximately 33 weeks gestation presents with spinal headache. She relates history that she had lithotripsy performed by Dr. Tonya Blanchard on , 4 days ago. She had epidural anesthesia instead of general as she is . The following day, she began having headache that is worse with standing. She has tried fdiw-vxd-jehpsne medications, and took a Percocet which took the edge off. Her headache is worse with standing. She denies any problems with the , no vaginal bleeding or cramping. [facility] Medical History Patient currently Anxiety Non-smoker Shortness of breath on exertion Ureteral stone with hydronephrosis Pre-conception counseling Family history of breast cancer in mother Normal gynecologic examination Home Medications ?Medication ?Instructions ?Recorded ?Last Taken ?Type cholecalciferol (vitamin D3) 25 25 mcg PO DAILY 12/04/22 07/30/23 History mcg (1,000 unit) capsule citalopram 30 mg capsule 30 mg PO DAILY 12/04/22 07/31/23 History L.acidophilus-L.plantarum-L.rhamnosus 1 cap PO DAILY supplement 02/07/23 07/30/23 History 1 billion cell capsule,delay rel (Probiotic Pearls Women's) magnesium citrate 100 mg capsule 200 mg PO DAILY 02/07/23 07/30/23 History multivit-min no.71-iron fum 28 1 cap PO DAILY preg 02/07/23 07/30/23 History mg-folate no.1 1 mg-dha 300 mg capsule (PNV-[place]) cephalexin 500 mg capsule 500 mg PO Q12 post-operative 3 07/31/23 Unknown Rx days #6 CAPSULES oxycodone-acetaminophen 5 mg-325 1 tab PO Q8H PRN pain 3 days #10 07/31/23 Unknown Rx mg tablet (Percocet) tabs Allergy/AdvReac Type Severity Reaction Status Date / Time Penicillins Allergy Mild Hives Verified 08/03/23 11:31 Family History Mother Hypertension Heart disease Breast cancer Father Hypertension Heart disease Grandmother Hypertension Heart disease Grandfather Heart disease Stomach cancer Uncle Cancer, Onset Age: 55 Maternal -throat cancer Surgical History Hx of left knee surgery Hx of cystoscopy Social History adopted: No household members: significant other and children number of children: 1 current occupational status: employed 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 current occupational exposures/hazards: No pets and animals: Yes pets and animals: dog(s) history of recent travel: No sexually active: Yes Smoking Status: Never smoker alcohol intake: never substance use type: does not use well-balanced diet: daily or most days caffeine: Yes Type: coffee Number of servings: 1 eating out: 1-3 times/week during the past year weight has: remained stable what type of physical activity do you participate in: aerobics and weight training frequency: 3-4 times per week duration: 30-45 minutes/day catrina/jain: None seatbelt use: always do you feel safe at home: Yes additional social history: Boyfriend-Michael [place] ROS ED ROS Narrative Constitutional: No fever, no chills. HEENT: No sore throat. No neck pain. No loss of vision. No rhinorrhea. Cardiovascular: No chest pain. No palpitations. No pedal edema. Respiratory: No cough, no shortness of breath. Abdominal: No abdominal pain. No nausea. No vomiting. Genitourinary: No dysuria. No hematuria. No vaginal bleeding or cramping. Musculoskeletal: No myalgias. No arthralgias. Neurologic: Positive headaches worse with standing. No dizziness. No lightheadedness. Skin: No rash. No change in color. Psychiatric: No depression. No anxiety. EXAM Physical Exam Narrative Exam Narrative: Afebrile. Vital signs noted. HEENT: Normocephalic. Atraumatic. PERRL, EOMI. Neck soft and supple. No point tenderness or step off. Cardiovascular: Regular rate and rhythm. No murmurs, rubs, or gallops appreciated. Respiratory: No tachypnea. Lungs clear to auscultation bilaterally. Gastrointestinal: Abdomen soft, nontender, with normoactive bowel sounds. No rebound or guarding. Gravid uterus. Neurological: Awake. Alert. Nonfocal, nonlateralizing. Skin: No rash. Normal color. No pallor. Musculoskeletal: No pedal edema. Full range of motion extremities. Const Vital Signs: 08/03/23 11:28 08/03/23 13:07 Temperature 96.9 F L 97.6 F L Temperature Source Temporal Temporal Pulse Rate 89 77 Respiratory Rate 16 16 Blood Pressure 130/76 H 104/71 Blood Pressure Mean 94 82 Pulse Ox 99 100 Oxygen Delivery Method Room Air Room Air MDM MDM MDM Narrative Medical decision making narrative: heart rates will be obtained as requested by Dr. Yosef Scanlon. I discussed patient with Dr. Arita with anesthesiology who will come to the emergency department and discuss options with the patient. heart rate of 130 bpm according to RN. I do not feel that she requires any laboratory work or imaging currently. Blood patch was performed. Patient remained in supine position until 2 PM. I had discussed patient with Dr. Arita via telephone that she is free to move around and stand up currently, and she should call him directly if the headache is persistent. She can call the hospital rotary swaging machine operator and be patched through to him. At this point in time, I feel she can be discharged to follow-up. Return instructions reviewed. Disposition is discharged home in stable condition. Discharge Plan Triage Chief Complaint: Headache ED Provider: Loc Aparicio Dx/Rx/DC Orders Clinical Impression: Spinal headache Instructions: ED Headache After Spinal Tap ... Prescriptions: No Action cholecalciferol (vitamin D3) 25 mcg (1,000 unit) capsule 25 mcg PO DAILY citalopram 30 mg capsule 30 mg PO DAILY magnesium citrate 100 mg capsule 200 mg PO DAILY PNV-[place] 28-1-300 mg capsule 1 cap PO DAILY Probiotic Pearls Women's 1 billion cell capsule,delayed release(DR/EC) 1 cap PO DAILY oxycodone-acetaminophen [Percocet] 5-325 mg tablet 1 tab PO Q8H PRN (Reason: pain) 3 Days Qty: 10 0RF cephalexin 500 mg capsule 500 mg PO Q12 3 Days Qty: 6 0RF Primary Care Provider: Carolann Nicole Referrals: Jose Luis Arita MD [Med Staff - Active Staff] - As Needed Carolann Nicole MD [Primary Care Provider] - Allison Andujar MD [Med Staff - Active Staff] - As Needed Print Language: Somali Disposition Disposition: Home, Self Care
[2023-08-03 13:07] VITALS: BP 104/71; PULSE 77; RESP 16; TEMP 36.4; O2SAT 100
[2023-08-03 14:00] VITALS: BP 108/68; PULSE 74; RESP 18; O2SAT 100
== END 2023-08-03 14:34 | disposition home or self-care (01) ==
PROVIDERS: Emergency Provider Emergency Medicine; PCP Family Medicine; Visit Provider Emergency Medicine
DX: O99.353 Diseases of the nervous system complicating pregnancy, third trimester (principal); G44.89 Other headache syndrome; Z3A.33 33 weeks gestation of pregnancy
CPT/HCPCS: 99282

== ENCOUNTER → 2023-08-22 | Outpatient (CLI) | payer MEDICAID, SELFPAY ==
--- NOTE | 2023-08-22 11:32 | US_ITS ---
STUDY: OBSTETRICAL ULTRASOUND - BIOPHYSICAL PROFILE REASON FOR EXAM: Female, 33 years old large baby, poly LMP: December 12, 2022 PRIOR ULTRASOUND: None. TECHNIQUE: Transabdominal TECHNICAL QUALITY: Adequate. FINDINGS: There is a single intrauterine fetus. The fetus is in a cephalic presentation. There is demonstrated cardiac activity with a heart rate of 140 bpm. There is a normal amniotic fluid volume. The largest amniotic fluid pocket measures 7.4 cm. The amniotic fluid index (ELINOR) is 23.8 cm. This is in the 95th percentile. The placenta is anterior in location and is not low lying. There are Grade 1 placental changes. Age by LMP: 36 weeks, 1 days. UTE by LMP: September 18, 2023. BIOPHYSICAL PROFILE: Breathing Movements (FBM): 2 Gross Body Movements (GBM): 2 Tone (FT): 2 Amniotic Fluid Volume (AFV): 2 TOTAL SCORE: US/Biophysical Prof W/O Non Stres IMPRESSION: Normal biophysical profile of 10/08. Electronically Signed: Bolivar Hobbs MD at 12:48 EDT ,
== END | disposition home or self-care (01) ==
LOC: US 11:28
PROVIDERS: PCP Family Medicine; Referring Provider Advanced Practice Midwife; Visit Provider Advanced Practice Midwife
DX: O36.60X0 Maternal care for excessive fetal growth, unspecified trimester, not applicable or unspecified (principal); O40.9XX0 Polyhydramnios, unspecified trimester, not applicable or unspecified; Z3A.00 Weeks of gestation of pregnancy not specified
CPT/HCPCS: 76819

== ENCOUNTER 2023-08-29 13:30 | Outpatient (CLI) | payer MEDICAID, SELFPAY | END 2023-08-29 18:00 | disposition home or self-care (01) | LOC: US 10-15 14:33 | PROVIDERS: Referring Provider Advanced Practice Midwife; Visit Provider Advanced Practice Midwife | DX: O09.93 Supervision of high risk pregnancy, unspecified, third trimester (principal); Z3A.00 Weeks of gestation of pregnancy not specified | CPT/HCPCS: 87081 ==

== ENCOUNTER → 2023-08-30 | Outpatient (CLI) | payer MEDICAID, SELFPAY | END | disposition home or self-care (01) | LOC: LABSPEC 07:52 | PROVIDERS: Referring Provider Obstetrics & Gynecology; Visit Provider Obstetrics & Gynecology | DX: O09.93 Supervision of high risk pregnancy, unspecified, third trimester (principal); Z3A.00 Weeks of gestation of pregnancy not specified ==

== ENCOUNTER → 2023-09-05 | Outpatient (CLI) | payer MEDICAID, SELFPAY ==
--- NOTE | 2023-09-05 10:06 | US_ITS ---
STUDY: OBSTETRICAL ULTRASOUND - BIOPHYSICAL PROFILE REASON FOR EXAM: Female, 33 years old macrosomia, possible polyhydramnios LMP: 12/12/2022 PRIOR ULTRASOUND: 08/22/23 TECHNIQUE: Transabdominal TECHNICAL QUALITY: Adequate. FINDINGS: There is a single intrauterine fetus. The fetus is in a cephalic presentation. There is demonstrated cardiac activity with a heart rate of 129 bpm. There is a normal amniotic fluid volume. The largest amniotic fluid pocket measures 7.8 cm. The amniotic fluid index (ELINOR) is 21.8 cm., This has decreased from 23.8 on the previous study The placenta is anterior in location and is not low lying. There are Grade 2 placental changes. Age by LMP: 38 weeks, 1 days. UTE by LMP: 09/18/2023. BIOPHYSICAL PROFILE: Breathing Movements (FBM): 2 Gross Body Movements (GBM): 2 Tone (FT): 2 Amniotic Fluid Volume (AFV): 2 TOTAL SCORE: 8 / 8 US/Biophysical Prof W/O Non Stres IMPRESSION: Normal biophysical profile of /. Electronically Signed: Jason Morgan MD at 11:37 EDT ,
== END | disposition home or self-care (01) ==
LOC: US 10:03
PROVIDERS: PCP Family Medicine; Referring Provider Advanced Practice Midwife; Visit Provider Advanced Practice Midwife
DX: O36.60X0 Maternal care for excessive fetal growth, unspecified trimester, not applicable or unspecified (principal); O40.9XX0 Polyhydramnios, unspecified trimester, not applicable or unspecified; Z3A.00 Weeks of gestation of pregnancy not specified
CPT/HCPCS: 76819

== ENCOUNTER 2023-09-07 00:59 | Inpatient (IN) | payer MEDICAID, SELFPAY ==
[2023-09-07] VITALS (61 sets, daily range): BP systolic 89–147; BP diastolic 50–96; PULSE 64–98; RESP 14–16; TEMP 36.6–37.3; O2SAT 79–100; BMI 25.8
[2023-09-07] MEDS: Lactated Ringers 1,000 ML 999 ML IV (01:05)
[2023-09-07 01:25] LABS: Absolute Lymphocyte Count 3.51 X10^3/uL (0.83-4.51); Absolute Neutrophil Count 10.2 X10^3/uL (2.0-7.7); Basophil# 0.08 X10^3/uL; Basophil% 0.5 % (0-1); Eosinophil# 0.14 X10^3/uL; Eosinophils% 0.9 % (0-5); Hematocrit 36.5 % (37-47); Hemoglobin 12.3 g/dL (12.0-15.0); Lymphocyte # 3.51 X10^3/ul (0.83-4.51); Lymphocyte % 22.9 % (19-41); Mean Corp Hgb Conc 33.7 g/dL (32-36); Mean Corpuscular Hgb 29.6 pg (27.0-32.0); Mean Corpuscular Volume 87.7 fL (81-99); Mean Platelet Vol. 10.1 fl (6.2-12.0); Monocyte% 8.5 % (0-10); NRBC Flagged by Analyzer 0 % (0-5); Neutrophil # 10.21 X10^3/uL (2.7-7.7); Neutrophil % 66.4 % (47-70); Platelet Count 326 K/mm3 (150-450); RBC Distribution Width CV 12.4 % (11.6-14.6); RBC Distribution Width SD 39.7 fl (35.1-43.9); Red Blood Count 4.16 M/mm3 (4.2-5.4); White Blood Count 15.4 K/mm3 (4.4-11.0)
[2023-09-07 01:53] LABS: Syphilis Antibodies Non-reactive
--- NOTE | 2023-09-07 02:08 | HP.PCM.OB_ITS ---
HPI - General General Date of Admission: 09/07/23 Date of Service: 09/07/23 HPI Narrative ESMER GARCÍA, is a 33 F who presents at 38.3 with contractions. at admission, denies lof/vb. has good fm. Maternal Data Information UTE Calculator Estimated Delivery Date Method Current WG Current Estimate 09/18/23 LMP (Certain) 38w 3d PFSH PFSH Medical History (Updated 09/07/23 @ 02:10 by Jayde Rubio CNM) hemorrhage depression Patient currently Anxiety Non-smoker Shortness of breath on exertion Ureteral stone with hydronephrosis Pre-conception counseling Family history of breast cancer in mother Normal gynecologic examination Home Medications ?Medication ?Instructions ?Recorded ?Last Taken ?Type citalopram 30 mg capsule 30 mg PO DAILY 12/04/22 07/31/23 History magnesium citrate 100 mg capsule 200 mg PO DAILY 02/07/23 07/30/23 History multivit-min no.71-iron fum 28 1 cap PO DAILY preg 02/07/23 07/30/23 History mg-folate no.1 1 mg-dha 300 mg capsule (PNV-[place]) Allergy/AdvReac Type Severity Reaction Status Date / Time Penicillins Allergy Mild Hives Verified 09/07/23 00:50 Family History Mother Hypertension Heart disease Breast cancer Father Hypertension Heart disease Grandmother Hypertension Heart disease Grandfather Heart disease Stomach cancer Uncle Cancer, Onset Age: 55 Maternal -throat cancer Surgical History (Updated 09/07/23 @ 01:13 by Hilary Aquino) History of surgery Hx of left knee surgery Hx of cystoscopy Social History adopted: No household members: significant other and children number of children: 1 current occupational status: employed 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 current occupational exposures/hazards: No pets and animals: Yes pets and animals: dog(s) history of recent travel: No sexually active: Yes Smoking Status: Never smoker alcohol intake: never substance use type: does not use well-balanced diet: daily or most days caffeine: Yes Type: coffee Number of servings: 1 eating out: 1-3 times/week during the past year weight has: remained stable what type of physical activity do you participate in: aerobics and weight training frequency: 3-4 times per week duration: 30-45 minutes/day catrina/congregation: None seatbelt use: always do you feel safe at home: Yes additional social history: Boyfriend-Michael History 2 Elective abortions Hx Para 1 Spontaneous abortions Hx # Term Pregnancies Ectopic pregnancies Hx # Pregnancies Multiple births # of living children 1 Past Pregnancies Del. Date Name GA/Weeks Outcome Route Bth Weight Gen Labor Lgth Anesthesia Del Locatn Provider FOB 10/12/20 Maye 39 live - full term Female epidural [facility] Michael Delivery Date: 10/12/20 Last Updated by: Lou Deleon No issues during . Did have hemorrhage Visit Details Expected Delivery Route/Plan Labor Preferences- CB/BF classes: no labor support person: Michael labor intervention preferences: [] pain management options preferred: try limited intervention cut cord/dad catch: cord : yes PP control planned: discussed discussed possible routes of delivery and associated risks: [] special requests: [] Plans Covid status: declines Flu vaccine: declines Tdap vaccine: Rhogam: both patient and negative LARC form signed: yes Problem list reviewed and updated with the most current plan of care details and appropriate orders placed. Relevant counseling for the gestational age provided. Continue routine care and follow up unless otherwise noted in visit notes/problem list details OB Flowsheet Initial Weight: 128 lb Date -?-?-?-?-?-?-?-?-?-?-?-?- EGA Weight BP Urine Prot -?-?-?-?-?-?-?-?-?-?-?-?- Glucose FHR FuHt Pres Dilation -?-?-?-?-?-?-?-?-?-?-?-?- Effaced St Visit Note 02/10/23 -?-?-?-?-?-?-?-?-?-?-?-?- 8w 4d 128 lb 6 oz (+6 oz) 113/68 -?-?-?-?-?-?-?-?-?-?-?-?- 168 -?-?-?-?-?-?-?-?-?-?-?-?- SM- CRL 2 cm con s with LMP 03/12/23 -?-?-?-?-?-?-?-?-?-?-?-?- 12w 6d 130 lb (+2 lb) 113/65 Negative -?-?-?-?-?-?-?-?-?-?-?-?- Negative 150 -?-?-?-?-?-?-?-?-?-?-?-?- JV- no lof, vagi nal bleeding, or cramping. normal NIPT (boy) 04/09/23 -?-?-?-?-?-?-?-?-?-?-?-?- 16w 6d 132 lb 4 oz (+4 lb 4 oz) 105/63 Negative -?-?-?-?-?-?-?-?-?-?-?-?- Negative 145 -?-?-?-?-?-?-?-?-?-?-?-?- JV- pt is jassi g a new job needs tb test. order placed for her to have that done at [facility]. no lof, vaginal bleeding, or cramping. anatomy scan ordered for 04/2205/09/23 -?-?-?-?-?-?-?-?-?-?-?-?- 21w 1d 137 lb 6 oz (+9 lb 6 oz) 118/72 Negative -?-?-?-?-?-?-?-?-?-?-?-?- Negative 158 21 -?-?-?-?-?-?-?-?-?-?-?-?- kw-no vb/crajanain sara max. Discussed 28 week labs . believes FOB positive blood type. order given. 06/02/23 -?-?-?-?-?-?-?-?-?-?-?-?- 24w 4d 141 lb 4 oz (+13 lb 4 oz) 107/64 Negative -?-?-?-?-?-?-?-?-?-?-?-?- Negative 140 23 -?-?-?-?-?-?-?-?-?-?-?-?- LC- no vb/ctx/lo f. good fm. LC- no vb/ctx/lof. good fm.F OB blood type pending. glucola ordered. 07/02/23 -?-?-?-?-?-?-?-?-?-?-?-?- 28w 6d 145 lb (+17 lb) 104/62 1+ -?-?-?-?-?-?-?-?-?-?-?-?- Negative 136 28 -?-?-?-?-?-?-?-?-?-?-?-?- MH-NO VB. LOF. Noting blood in urine and some low pelvic pain/relieved with tylenol. UA+. Culture pending. Pre E labs. No headache/vision changes. Larc, 28 wk labs 07/14/23 -?-?-?-?-?-?-?-?-?-?-?-?- 30w 4d 147 lb 6 oz (+19 lb 6 oz) 110/66 Negative -?-?-?-?-?-?-?-?-?-?-?-?- Negative 143 30 -?-?-?-?-?-?-?-?-?-?-?-?- JV- has stent in from kidney stone over the weekend. will get laser lithotripsy soon. growth scan today. 08/11/23 -?-?-?-?-?-?-?-?-?-?-?-?- 34w 4d 151 lb (+23 lb) 110/67 Negative -?-?-?-?-?-?-?-?-?-?-?-?- Negative 140 33 -?-?-?-?-?-?-?--?-?-?-?-?- SM- no vb lof go od fm no regular ctx 08/29/23 -?-?-?-?-?-?-?-?-?-?-?-?- 37w 1d 152 lb (+24 lb) 129/77 Negative -?-?-?-?-?-?-?-?-?-?-?-?- Negative 130 37 -?-?-?-?-?-?-?-?-?-?-?-?- SM- no vb lof go od fm no regular ctx BS WNL gbs collected 09/03/23 -?-?-?-?-?-?-?-?-?--?-?-?- 37w 6d 153 lb (+25 lb) 135/87 -?-?-?-?-?-?-?-?-?-?-?-?- 120 39 Cephalic 4 -?-?-?-?-?-?-?-?-?-?-?-?- 80 -2 KW- no vb/ lof/reg ctx. good fm. NST FHR Rate Baby A Baseline: 120 Variability:: Moderate Accelerations:: 15 x 15 Decelerations:: None NST Reactive:: Yes FHR Category:: Category I Uterine Activity:: q2 ROS Cardiovascular Cardiovascular: Denies abdominal pain, chest pain, diaphoresis or dyspnea Respiratory/Chest Respiratory/Chest: Denies change in mental status, chest congestion, chest tightness, cough, shortness of breath at rest or shortness of breath with exertion Genitourinary Genitourinary: Reports change in urinary stream Musculoskeletal Musculoskeletal: Reports none Integumentary Integumentary: Reports none Neurologic Neurologic: Reports none Psychiatric Psychiatric: Reports none Endocrine Endocrinology: Reports none Hematologic/Lymphatic Hematologic/Lymphatic: Reports none Allergic/Immunologic Allergic/Immunologic: Reports none Vital Signs Vital Signs Vital Signs: 09/07/23 00:40 09/07/23 00:40 09/07/23 00:40 Pulse Rate 98 Blood Pressure 147/96 H BP Systolic 147 BP Diastolic 96 Pulse Ox 99 09/07/23 00:56 09/07/23 00:56 09/07/23 01:21 Pulse Rate 76 71 Blood Pressure 128/63 H BP Systolic 128 BP Diastolic 63 Pulse Ox 09/07/23 01:21 09/07/23 01:26 09/07/23 01:26 Pulse Rate 74 Blood Pressure BP Systolic BP Diastolic Pulse Ox 98 98 09/07/23 01:31 09/07/23 01:31 09/07/23 01:36 Pulse Rate 91 71 Blood Pressure BP Systolic BP Diastolic Pulse Ox 98 09/07/23 01:36 09/07/23 01:41 09/07/23 01:41 Pulse Rate 81 Blood Pressure BP Systolic BP Diastolic Pulse Ox 98 99 09/07/23 01:46 09/07/23 01:46 09/07/23 01:55 Pulse Rate 87 80 Blood Pressure BP Systolic BP Diastolic Pulse Ox 98 09/07/23 01:55 09/07/23 02:00 09/07/23 02:00 Pulse Rate 89 Blood Pressure 139/72 H BP Systolic 139 BP Diastolic 72 Pulse Ox 100 09/07/23 02:00 09/07/23 02:04 09/07/23 02:04 Pulse Rate 79 Blood Pressure BP Systolic BP Diastolic Pulse Ox 100 87 09/07/23 02:05 09/07/23 02:05 09/07/23 02:05 Pulse Rate 79 Blood Pressure 129/67 H BP Systolic 129 BP Diastolic 67 Pulse Ox 100 Weight Weight: 155 lb 3.2 oz Body Mass Index (BMI) 25.8 Physical Exam Const alert, oriented x3 and no apparent distress General Appearance: cooperative, comfortable and well kempt Orientation / Consciousness: awake and oriented to person Exam Limitations: no limitations HEENT normocephalic Neck full ROM Chest inspection of chest normal Resp normal respiratory effort, normal air movement and no retractions Effort and Inspection: able to speak in complete sentences and symmetric chest movement Cardio regular rate Peripheral Pulses: pulses 2+ throughout GI normal to inspection, nondistended, normoactive bowel sounds Inspection: gravid no CVA tenderness and appearance of the vagina normal External Female Exam: normal appearance of the urethra; Negative for external lesion OB / External & Speculum: external exam normal Manual OB Exam: estimated gestational size appropriate and presentation cephalic Uterus Palpation: Negative for uterus tender Extremity normal to inspection Skin no rashes or lesions noted Neuro deep tendon reflexes 2+ bilaterally and gait normal Motor Exam: strength 5/5 throughout and clonus absent Psych Activity / Motor Behavior: appropriate eye contact Speech: normal speech Labs Labs Labs: Blood Type O NEGATIVE Antibody Screen NEGATIVE Hct 36.5 % (37-47) L Hgb 12.3 g/dL (12.0-15.0) Pap Smear Negative Syphilis Total Ab Non-reactive Rubella IgG Antibody Reactive (Nonreactive) Hep Bs Antigen Non-Reactive (Nonreactive) Hepatitis C Antibody Non-Reactive (Nonreactive) Chlamydia DNA (VINEET) Negative (Negative) N.gonorrhoeae DNA (VINEET) Negative (Negative) HIV 1&2 Antibody Non-Reactive (Nonreactive) Glucose 1 Hr 50 gm 73 mg/dL (70-140) Assessment & Plan (1) Spontaneous onset of labor: (2) Large for gestational age fetus affecting management of mother, antepartum: COMMENT: repeat gct growth q4 BPPS weekly (3) Right nephrolithiasis: COMMENT: consult urogyn for stent placement (4) Encounter for blood typing: COMMENT: HEMA Fortune. order given for blood typing 05/09/23. Blood type is A- (5) Placental abnormality: QUALIFIERS: Trimester: third trimester Qualified Code(s): O43.103 - Malformation of placenta, unspecified, third trimester COMMENT: lakes. q 4 week growth per MFM 67%, 07/13 growth 87% (6) Rh negative status during : QUALIFIERS: Trimester: third trimester Qualified Code(s): O26.893 - Other specified related conditions, third trimester; Z67.91 - Unspecified blood type, Rh negative COMMENT: is Rh neg. No Rhogam. O neg. Rhogam PRN & 28 weeks (7) Anxiety: COMMENT: celexa/stable (8) Supervision of high-risk : QUALIFIERS: Trimester: third trimester Qualified Code(s): O09.93 - Supervision of high risk , unspecified, third trimester COMMENT: [id number], UTE 09/18/23, PC Maye, SINA Rodriguez (9) : QUALIFIERS: Weeks of gestation: 34 weeks Qualified Code(s): Z3A.34 - 34 weeks gestation of COMMENT: GBS neg, nl anatomy, LR NIPT. Neg carrier testing (10) Depression: QUALIFIERS: Depression Type: unspecified Qualified Code(s): F32.A - Depression, unspecified COMMENT: celexa. counseling encouraged. (11) Ureteral stone with hydronephrosis: COMMENT: has planned laser lithotripsy PLAN: Plan Patient presents IAL, plan expectant management for , pitocin/AROM PRN if needed. Pain management: plans epidural. GBS negative. Management of any complications: none I have reviewed the [facility] and made any clinically relevant updates. Dr. Andujar updated on admission, exam and poc.
[2023-09-07] MEDS: Lactated Ringers 1,000 ML 200 ML IV (02:20)
[2023-09-07] MEDS: fentaNYL-bupivacaine (epidural) 100 ML BAG EPIDURAL (02:26)
[2023-09-07] MEDS: Oxytocin 15 Units/NS 250ml 15 UNITS/250 ML IV.SOLN 334 UNITS IV (04:42)
[2023-09-07] MEDS: Methylergonovine 0.2 MG/ML Ampul IM (04:47)
[2023-09-07] MEDS: miSOPROStol 200 MCG Tablet 1000 MCG RC (04:53)
[2023-09-07] MEDS: 0.9% Saline Lock 10 ML Syringe IV ×2 (04:58→05:46)
[2023-09-07] MEDS: TRANEXAMIC ACID 1,000 MG in 0.9% Normal Saline (100mL Bag) 100 ML 440 MG IV (05:05)
[2023-09-07] MEDS: Gentamicin IV 290 MG in Dextrose 5%-Water (50mL Bag) 50 ML 100 MG IVPB (05:09)
--- NOTE | 2023-09-07 05:13 | EX.PCM.OBRPT ---
Assessment & Plan (1) (spontaneous vaginal delivery): COMMENT: IAL boy 4th degree lac LC (2) Fourth degree laceration of perineum during delivery, : COMMENT: ATC stool softeners, sitz bath, oxycontin prn s/p clinda 900mg/gent 5mg/kg x1 each Maternal Data Information UTE Calculator Estimated Delivery Date Method Current WG Current Estimate 09/18/23 LMP (Certain) 38w 3d Final UTE: 09/18/23 Final UTE Source: LMP Gestational age: 38.3 Vaginal Delivery Maternal Presentation Maternal Presentation: Active Labor Maternal Presentation: presented in IAL at 38.3. epiduralized for pain management, progressed to fully dilated without intervention. Operative Information Date of Procedure: 09/07/23 Pre-Operative Diagnosis: see problem list Post-Operative Diagnosis: Surgery / Procedure Performed: Spontaneous Vaginal Delivery Type of Anesthesia: Epidural Estimated Blood Loss: 800 Time of Delivery: 04:34 Findings Description of Procedure: Patient began pushing and delivered the head in the ROMAIN presentation. The head was delivered atraumatically and a loose nuchal cord ?1 was identified and easily reduced over the 's head. The anterior and posterior shoulders delivered without complication followed by the rest of the infant and the was placed on the maternal abdomen. Delayed cord clamping was employed for approximately 60 seconds. Cord was clamped and cut and gentle traction was applied to the cord and the placenta delivered spontaneously immediately following it was noted to be intact with three-vessel cord. The perineum and vagina were inspected and noted to have fourth degree laceration, Dr. Andujar consulted for repair, see op note. EBL was 800cc s/p methergine, cytotec, TXA and pitocin for management with excellent hemostasis. Patient and infant tolerated delivery well. Presentation: Vertex Amniotic Membrane Rupture Type: Spontaneous Amniotic Fluid Description: Clear Placental Delivery Description: Spontaneous Placenta Disposition: [facility] Cord Vessel Description: 3 Vessels Cord Entanglement: Around neck x 1, loose A Gender: Male Delayed Cord Clamping: Yes Post Vaginal Delivery Medications Given After Delivery: IV Pitocin, IM Methergin and - (cytotec) Episiotomy Description: None Laceration: 4th Degree Complication Complications: - (4th degree laceration) Procedures Urinary/Genital [id number]: [id number] Vaginal Delivery [facility]
[2023-09-07] MEDS: Oxytocin 15 Units/NS 250ml 15 UNITS/250 ML IV.SOLN 83 UNITS IV (05:15)
--- NOTE | 2023-09-07 05:34 | DCINST_ITS ---
Discharge Instructions Diet Discharge Diet: No restrictions Activity Discharge Activity: May Not Drive and May Shower May resume sexual activity in: 6 weeks Weight Bearing Status: Full weight bearing Dressing / Incision Call your doctor if your incision/area has: Sudden Increased Bleeding, Increased Pain/ Swelling and Foul Smelling Discharge Call your doctor if you observe: Fever of 101 or Higher, Numbness or Tingling, Change in Color, Inability to urinate, Inability to have a bowel movement, Using more than 1 pad per hour, Shortness of breath, Dizziness, Fainting spells, Chest pain, Calf discomfort and Uncontrolled pain Follow Up Care Please Follow Up With: Jayde Rubio CNM When: 6 weeks , please call office to make an appointment. Congratulations on the of your baby! Test Results: Test results from this visit will be discussed in further detail at your follow- up appointment, if applicable. Discharge Plan Admission Admit Date/Time: 09/07/23 00:59 Attending Provider: Jayde Rubio Primary Care Provider: Care Physician,No Primary Discharge Orders/Prescriptions Prescriptions: No Action citalopram 30 mg capsule 30 mg PO DAILY magnesium citrate 100 mg capsule 200 mg PO DAILY PNV-[place] 28-1-300 mg capsule 1 cap PO DAILY Referrals / Follow Up: Care Physician,No Primary [Primary Care Provider] - Disposition Disposition (needs filled in before D/C Order can be placed): Home, Self Care
--- NOTE | 2023-09-07 05:36 | PCM.OP.BLANK ---
Operative Report Date of Procedure: 09/07/23 called in for perineal repair, fourth degree laceration noted. area was betadine prepped and rectal mucosa reapproximated with 3-0 chromic and oversewn with overlapping technique for the second layer. anal sphincter apsule and muscle brougth together with 2-0 vicryl figure of eight sutures without complications. betadine wash used at every level of layering of the closure. then the rest of the repair was closed in the usual fasion with 3-0 rapide. overall ebl 800 combined prior to my presentation and minimal bleeding noted during my portion of the procedure. Procedures Urinary/Genital 52xxx-[id number]: [id number] Episiotomy or vaginal repair(non-delivery) (repair of perineum after mechanical insulator delivery)
[2023-09-07] MEDS: Clindamycin 900 MG/50 ML BAG 75 MG IV (05:53)
[2023-09-07] MEDS: Senna/Docusate Sodium 1 Tablet PO (10:24)
[2023-09-07] MEDS: Naproxen 500 MG Tablet PO (10:24)
[2023-09-07] MEDS: Benzocaine/Lanolin/Aloe Vera 1 SPRAY EACH TOPICAL (10:31)
[2023-09-07 11:25] LABS: Absolute Lymphocyte Count 2.14 X10^3/uL (0.83-4.51); Absolute Neutrophil Count 17.6 X10^3/uL (2.0-7.7); Basophil# 0.04 X10^3/uL; Basophil% 0.2 % (0-1); Eosinophil# 0.04 X10^3/uL; Eosinophils% 0.2 % (0-5); Hemoglobin 9.8 g/dL (12.0-15.0); Lymphocyte # 2.14 X10^3/ul (0.83-4.51); Lymphocyte % 9.8 % (19-41); Mean Corp Hgb Conc 33.8 g/dL (32-36); Mean Corpuscular Hgb 30.1 pg (27.0-32.0); Mean Platelet Vol. 10.2 fl (6.2-12.0); Monocyte# 1.97 X10^3/uL; NRBC Flagged by Analyzer 0 % (0-5); Neutrophil % 80.1 % (47-70); POSITIVE DIFFERENTIAL YES; Platelet Count 262 K/mm3 (150-450); RBC Distribution Width CV 12.4 % (11.6-14.6); RBC Distribution Width SD 39.9 fl (35.1-43.9); Red Blood Count 3.26 M/mm3 (4.2-5.4); White Blood Count 21.9 K/mm3 (4.4-11.0)
[2023-09-07 11:26] LABS: Differential Indicated SCAN CRITERIA MET
[2023-09-07 11:58] LABS: Differential Comment SCANNED
[2023-09-07] MEDS: Acetaminophen 500 MG Tablet 1000 MG PO ×2 (15:06→21:16)
[2023-09-07] MEDS: Ferrous Sulfate 325 MG Tablet PO ×2 (15:06→21:16)
[2023-09-08] VITALS (8 sets, daily range): BP systolic 94–111; BP diastolic 51–61; PULSE 75–100; RESP 16; TEMP 36.3–36.7; O2SAT 98–99
[2023-09-08 05:13] LABS: Absolute Lymphocyte Count 3.63 X10^3/uL (0.83-4.51); Absolute Neutrophil Count 12.8 X10^3/uL (2.0-7.7); Basophil# 0.06 X10^3/uL; Basophil% 0.3 % (0-1); Eosinophil# 0.11 X10^3/uL; Eosinophils% 0.6 % (0-5); Hematocrit 24.6 % (37-47); Hemoglobin 8.2 g/dL (12.0-15.0); Lymphocyte # 3.63 X10^3/ul (0.83-4.51); Lymphocyte % 19.7 % (19-41); Mean Corp Hgb Conc 33.3 g/dL (32-36); Mean Corpuscular Hgb 29.8 pg (27.0-32.0); Mean Corpuscular Volume 89.5 fL (81-99); Mean Platelet Vol. 10.1 fl (6.2-12.0); Monocyte# 1.65 X10^3/uL; Monocyte% 8.9 % (0-10); NRBC Flagged by Analyzer 0 % (0-5); Neutrophil # 12.76 X10^3/uL (2.7-7.7); Neutrophil % 69.1 % (47-70); POSITIVE DIFFERENTIAL YES; Platelet Count 236 K/mm3 (150-450); RBC Distribution Width CV 12.8 % (11.6-14.6); Red Blood Count 2.75 M/mm3 (4.2-5.4); White Blood Count 18.5 K/mm3 (4.4-11.0)
[2023-09-08 05:28] LABS: Differential Indicated SCAN CRITERIA MET
[2023-09-08 07:05] LABS: Differential Comment SCANNED
--- NOTE | 2023-09-08 07:17 | PN.OBGYN_ITS ---
Subjective Subjective Patient doing well without complaints. Tolerating PO. Ambulating and voiding without difficulty. Feeding well. Denies chest pain, shortness of breath, calf pain/swelling, fevers, chills, lightheadedness. Objective Data Objective Data Vital Signs: Vital Signs Temp Pulse Resp BP Pulse Ox O2 Del Method 98.1 F 77 16 94/51 L 99 Room Air 09/08/23 05:00 09/08/23 05:01 09/08/23 05:00 09/08/23 05:01 09/08/23 05:00 09/08/23 05:00 Oxygen Delivery Method Room Air Weight: 155 lb 3.2 oz Body Mass Index (BMI) 25.8 Intake & Output: Intake and Output for Last 24 Hours 09/06/23 09/07/23 09/08/23 23:59 23:59 23:59 Intake Total 2163.92 / 2163.92 Output Total 1690 / 1690 Balance 473.92 / 473.92 Lab / Micro Data Attestation: I reviewed the patient's lab results. 09/08/23 05:00 Labs: Laboratory Results - last 24 hr 09/07/23 11:05: WBC 21.9 H, RBC 3.26 L, Hgb 9.8 L, Hct 29.0 L, MCV 89.0, MCH 30.1, MCHC 33.8, RDW Std Deviation 39.9, RDW Coeff of Corina 12.4, Plt Count 262, MPV 10.2, Immature Gran % (Auto) 0.700, Neut % (Auto) 80.1 H, Lymph % (Auto) 9.8 L, Bonner % (Auto) 9.0, Eos % (Auto) 0.2, Baso % (Auto) 0.2, Absolute Neuts (auto) 17.6 H, Absolute Lymphs (auto) 2.14, Nucleated RBC % 0, Differential Comment SCANNED, Diff Path Review July09/08/23 05:00: WBC 18.5 H, RBC 2.75 L, Hgb 8.2 L, Hct 24.6 L, MCV 89.5, MCH 29.8, MCHC 33.3, RDW Std Deviation 41.0, RDW Coeff of Corina 12.8, Plt Count 236, MPV 10.1, Immature Gran % (Auto) 1.400 H, Neut % (Auto) 69.1, Lymph % (Auto) 19.7, Bonner % (Auto) 8.9, Eos % (Auto) 0.6, Baso % (Auto) 0.3, Absolute Neuts (auto) 12.8 H, Absolute Lymphs (auto) 3.63, Nucleated RBC % 0, Differential Comment SCANNED, Diff Path Review May foll ROS Constitutional Constitutional: Reports systems reviewed and no addt'l complaints, except as documented; Denies anorexia or headache(s) Cardiovascular Cardiovascular: Reports systems reviewed and no addt'l complaints, except as documented; Denies dizziness, dyspnea, nausea or tachypnea Respiratory/Chest Respiratory/Chest: Reports systems reviewed and no addt'l complaints, except as documented; Denies cough, dyspnea, shortness of breath at rest or tachypnea Gastrointestinal Gastrointestinal: Reports systems reviewed and no addt'l complaints, except as documented; Denies abdominal pain, constipation or nausea Genitourinary Genitourinary: Reports systems reviewed and no addt'l complaints, except as documented; Denies burning urination, difficulty urinating, dysuria, urinary frequency or urinary incontinence Musculoskeletal Musculoskeletal: Reports systems reviewed and no addt'l complaints, except as documented Integumentary Integumentary: Reports systems reviewed and no addt'l complaints, except as documented Neurologic Neurologic: Reports systems reviewed and no addt'l complaints, except as documented; Denies abnormal speech, dizziness or headache(s) Psychiatric Psychiatric: Reports systems reviewed and no addt'l complaints, except as documented Endocrine Endocrinology: Reports systems reviewed and no addt'l complaints, except as documented Hematologic/Lymphatic Hematologic/Lymphatic: Reports systems reviewed and no addt'l complaints, except as documented Physical Exam Const alert, oriented x3 and no apparent distress Neck full ROM Resp normal respiratory effort, normal air movement and no retractions Effort and Inspection: able to speak in complete sentences and symmetric chest movement GI soft to palpation Bladder / Kidney Exam: bladder normal to palpation Uterus Palpation: uterus fundus firm Extremity normal to inspection and full ROM Psych mental status grossly normal, thought process normal and cooperative Assessment & Plan (1) Fourth degree laceration of perineum during delivery, : COMMENT: ATC stool softeners, sitz bath, oxycontin prn s/p clinda 900mg/gent 5mg/kg x1 each (2) (spontaneous vaginal delivery): COMMENT: IAL Vel 4th degree lac LC PLAN: s/p PPD # 1 1. routine post delivery care 2. breast feeding- support given 3. rh positive 4. rubella immune 5. Discharge Home (3) Spontaneous onset of labor: (4) Large for gestational age fetus affecting management of mother, antepartum: COMMENT: repeat gct growth q4 BPPS weekly (5) Need for Tdap vaccination: COMMENT: Given 07/14/23 (6) Right nephrolithiasis: COMMENT: consult urogyn for stent placement (7) Proteinuria affecting : COMMENT: Probably due to UTI. Repeat Urine PC ration at next visit (8) Hematuria: QUALIFIERS: Hematuria type: gross Qualified Code(s): R31.0 - Gross hematuria COMMENT: +UA, macobid, culture negative (9) Encounter for blood typing: COMMENT: HEMA Fortune. order given for blood typing 05/09/23. Blood type is A- (10) Placental abnormality: QUALIFIERS: Trimester: third trimester Qualified Code(s): O43.103 - Malformation of placenta, unspecified, third trimester COMMENT: lakes. q 4 week growth per MFM 67%, 07/13 growth 87% (11) Rh negative status during : QUALIFIERS: Trimester: third trimester Qualified Code(s): O26.893 - Other specified related conditions, third trimester; Z67.91 - Unspecified blood type, Rh negative COMMENT: is Rh neg. No Rhogam. O neg. Rhogam PRN & 28 weeks (12) Anxiety: COMMENT: celexa/stable (13) Supervision of high-risk : QUALIFIERS: Trimester: third trimester Qualified Code(s): O09.93 - Supervision of high risk , unspecified, third trimester COMMENT: [id number], UTE 09/18/23, PC SINA Villavicencio (14) : QUALIFIERS: Weeks of gestation: 34 weeks Qualified Code(s): Z 3A.34 - 34 weeks gestation of COMMENT: GBS neg, nl anatomy, LR NIPT. Neg carrier testing (15) Depression: QUALIFIERS: Depression Type: unspecified Qualified Code(s): F32.A - Depression, unspecified COMMENT: celexa. counseling encouraged. (16) Ureteral stone with hydronephrosis: COMMENT: has planned laser lithotripsy Charges/Coding Multi Select Codes Urinary/Genital Urinary/Genital CPT Codes: No Charge
[2023-09-08] MEDS: Ferrous Sulfate 325 MG Tablet PO (08:16)
[2023-09-08] MEDS: Senna/Docusate Sodium 1 Tablet PO (08:16)
[2023-09-08 14:24] LABS: Pathologist Review Reviewed
[2023-09-08 14:25] LABS: Pathologist Review Reviewed
== END 2023-09-08 14:35 | disposition home or self-care (01) | DRG 542 ==
LOC: WP 01:01
PROVIDERS: Admitting Provider Registered Nurse; Referring Provider Registered Nurse; Visit Provider Registered Nurse
DX: O36.63X0 Maternal care for excessive fetal growth, third trimester, not applicable or unspecified (principal); Z37.0 Single live birth; O26.833 Pregnancy related renal disease, third trimester; F32.A Depression, unspecified; F41.9 Anxiety disorder, unspecified; O70.3 Fourth degree perineal laceration during delivery; O99.344 Other mental disorders complicating childbirth; Z3A.38 38 weeks gestation of pregnancy; N13.2 Hydronephrosis with renal and ureteral calculous obstruction; O69.81X0 Labor and delivery complicated by cord around neck, without compression, not applicable or unspecified; R31.0 Gross hematuria
CPT/HCPCS: 59025; 59050; 76819; 85025; 86780; 86850; 86900; 86901; 99221; J7120; A4216; G0378

== ENCOUNTER 2023-10-29 11:56 | Emergency (ER) | payer MEDICAID, SELFPAY ==
[2023-10-29 11:56] VITALS: BP 125/80; PULSE 77; RESP 16; TEMP 36.1; O2SAT 99; BMI 21.7
[2023-10-29 12:24] LABS: Internal QC Validated? YES +Cl - CLEAR BKGD; Pregnancy, Serum, hCG Quali. NEGATIVE Negative
--- NOTE | 2023-10-29 12:27 | EX.ED.DYSGE1 ---
HPI History of Present Illness Chief Complaint: Flank Pain PFSH PFSH Medical History Need for Tdap vaccination Supervision of high-risk Rh negative status during Encounter for blood typing Placental abnormality Proteinuria affecting Large for gestational age fetus affecting management of mother, antepartum Spontaneous onset of labor hemorrhage depression Patient currently Anxiety Non-smoker Shortness of breath on exertion Ureteral stone with hydronephrosis Pre-conception counseling Family history of breast cancer in mother Normal gynecologic examination Home Medications ?Medication ?Instructions ?Recorded ?Last Taken ?Type magnesium citrate 100 mg capsule 200 mg PO DAILY 02/07/23 07/30/23 History multivit-min no.71-iron fum 28 1 cap PO DAILY preg 02/07/23 07/30/23 History mg-folate no.1 1 mg-dha 300 mg capsule ([facility]) citalopram 30 mg capsule 40 mg PO DAILY 10/29/23 Unknown History ondansetron 4 mg disintegrating 4 mg PO Q8H PRN PRN Nausea #10 tabs 10/29/23 Unknown Rx tablet oxycodone 5 mg tablet 5 mg PO Q6H PRN pain 3 days #12 10/29/23 Unknown Rx tabs Allergy/AdvReac Type Severity Reaction Status Date / Time Penicillins Allergy Mild Hives Verified 10/29/23 11:58 Family History Mother Hypertension Heart disease Breast cancer Father Hypertension Heart disease Grandmother Hypertension Heart disease Grandfather Heart disease Stomach cancer Uncle Cancer, Onset Age: 55 Maternal -throat cancer Surgical History History of surgery Hx of left knee surgery Hx of cystoscopy Social History adopted: No household members: significant other and children number of children: 1 current occupational status: employed 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 current occupational exposures/hazards: No pets and animals: Yes pets and animals: dog(s) history of recent travel: No sexually active: Yes Smoking Status: Never smoker alcohol intake: never substance use type: does not use well-balanced diet: daily or most days caffeine: Yes Type: coffee Number of servings: 1 eating out: 1-3 times/week during the past year weight has: remained stable what type of physical activity do you participate in: aerobics and weight training frequency: 3-4 times per week duration: 30-45 minutes/day catrina/yazidism: None seatbelt use: always do you feel safe at home: Yes additional social history: Boyfriend-Michael EXAM Physical Exam Const Vital Signs: 10/29/23 11:56 10/29/23 13:27 10/29/23 14:00 Temperature 97.0 F L Temperature Source Temporal Pulse Rate 77 64 Respiratory Rate 16 18 18 Blood Pressure 125/80 H 111/64 Blood Pressure Mean 95 79 Pulse Ox 99 99 Oxygen Delivery Method Room Air Room Air Room Air MDM MDM MDM Narrative Medical decision making narrative: HISTORY OF PRESENT ILLNESS: 43-year-old female presents with right flank pain. Notes history of kidney stones. No show sent in by her urologist. REVIEW OF SYSTEMS: Pertinent positives: Right flank pain Pertinent negatives: Vomiting, fever PHYSICAL EXAM: Nursing triage notes reviewed, Vital signs reviewed Constitutional: please see mdm HENT: MMM Eyes: Pupils equal round and reactive to light, Extraocular muscles intact Neck: No stridor, no JVD, full neck ROM Lungs: Clear to auscultation, No wheezing or rales. No increased work of breathing, no conversational dyspnea, no accessory muscle use, no nasal flaring. No respiratory distress noted Heart: Regular rate and rhythm, No murmurs, No rubs and No gallops, 2+ distal pulses (radial, femoral, posterior tibial) in all extremities Abdomen: Soft, there is no tenderness, rigidity, rebound or guarding, no obvious peritoneal signs, no palpable pulsatile abdominal masses, no auscultated abdominal bruit : No CVAT Extremities: No edema Neuro: No focal neurological deficits, cranial nerves II through XII intact, 5/5 strength in all extremities. Intact sensation to light touch in all extremities, 2+ reflexes bilateral patella tendons. Normal gait. No ataxia. Skin: No rash or lesions noted MEDICAL DECISION MAKING: Chief Complaint: Right flank pain External records reviewed: Imaging reviewed showed kidney stone in July 2023. Underwent cystoscopy, right ureteroscopy, stone basket extraction, right ureteral stent exchange on 07/31/2023 Factors affecting care: Nephrolithiasis Consults: Urology (Dr. Blanchard) MDM Narrative: Patient was initially hemodynamically stable, afebrile and nontoxic-appearing. Exam without CVA tenderness. I considered the following differential diagnosis: Nephrolithiasis, pyelonephritis, UTI, AAA, musculoskeletal pain I obtained a broad lab and imaging workup to further elucidate etiology of the patient's complaint. I treat the patient with 15 mg IV Toradol, 40 mg IV morphine, 4 mg IV Zofran and 1 L normal saline for resuscitation ALL IMAGES (IF OBTAINED) HAVE BEEN PERSONALLY REVIEWED AND INTERPRETED BY MYSELF. Urine hCG negative CBC without leukocytosis, severe anemia, no thrombocytopenia. Urinalysis shows no evidence of urinary inflammation suggestive of UTI, shows evidence of occult hematuria consistent with kidney stone CT scan of the abdomen pelvis without contrast shows evidence of a right sided nephrolithiasis 5 mm. Upon reassessment patient noted complete resolution of symptoms. States went to the bathroom she felt some burning and saw a small stone like object in the toilet. Her history and reassessment are consistent with likely passed kidney stone. Discussed case with her urologist who also agree that she is appropriate discharge. Will give narcotics and Zofran for symptomatic relief in case symptoms return. Gave strict return precautions and follow-up instructions with urology. The patient and/or family, caregivers express understanding. The patient and/or family, caregivers agrees with the plan. Shared decision making: I will have a discussion with the patient and or visitors regarding risk/benefits of further testing or admission. They will be made aware of of the risk/benefits inherent in this decision they will be given the opportunity to voice understanding. Total critical care time today provided was at least 0 minutes. This excludes separately billable procedures. Critical care time (if documented) is secondary to the patient having high probability of clinically significant/life threatening deterioration in the patient's condition which required my urgent intervention. Impression: 1. Nephrolithiasis 2. Hydronephrosis Dispo: Discharge home This note was generated with [employer] dictation software. It may contain incorrect words, spelling, and punctuation that were not noted in review of the chart prior to signing. Lab Data Labs: Laboratory Results - last 24 hr 10/29/23 10/29/23 12:00 13:20 WBC 7.7 RBC 4.41 Hgb 12.3 Hct 38.4 MCV 87.1 MCH 27.9 MCHC 32.0 RDW Std Deviation 41.0 RDW Coeff of [place] 12.7 Plt Count 358 MPV 9.5 Immature Gran % (Auto) 0.100 Neut % (Auto) 74.9 H Lymph % (Auto) 18.3 L [place] % (Auto) 4.9 Eos % (Auto) 1.2 Baso % (Auto) 0.6 Absolute Neuts (auto) 5.8 Absolute Lymphs (auto) 1.41 Nucleated RBC % 0 Sodium 138 Potassium 3.6 Chloride 108 H Carbon Dioxide 24.0 Anion Gap 6 BUN 15 Creatinine 0.97 Estim Creat Clear Calc 75.62 Est GFR (MDRD) Af Amer 86 Est GFR (MDRD) Non-Af 71 BUN/Creatinine Ratio 15.5 Glucose 105 Calcium 8.9 Serum , Qual NEGATIVE Urine Color Yellow Urine Clarity Sl. Cloudy Urine pH 6.0 Ur Specific [place] 1.025 Urine Protein 30 H Urine Glucose (UA) Normal Urine Ketones 15 H Urine Occult Blood 150 H Urine Nitrite Negative Urine Bilirubin Negative Urine Urobilinogen Normal Ur Leukocyte Esterase 25 H Urine RBC 10-25 SEEN Urine WBC 0-5 SEEN Ur Squamous Epith Cells 0-5 SEEN Urine Bacteria 0 SEEN Urine Mucus 2+ Radiography Diagnostic Testing: Clinical Impression(s) from Imaging Studies Abdomen/Pelvis CT 10/29/23 12:43 IMPRESSION: 1. Marked right hydronephrosis and hydroureter secondary to a 5 mm stone at the right ureterovesical junction. 2. Bilateral nephrolithiasis. Electronically Signed: Jose Caruso MD at 13:21 EDT Reading Location ID and State: [facility] / [place] Tel , Service support , Discharge Plan Triage Chief Complaint: Flank Pain ED Provider: Antione Waller Dx/Rx/DC Orders Instructions: ED Kidney Stone with Pain Prescriptions: New oxycodone 5 mg tablet 5 mg PO Q6H PRN (Reason: pain) 3 Days Qty: 12 0RF ondansetron 4 mg tablet,disintegrating 4 mg PO Q8H PRN PRN (Reason: Nausea) Qty: 10 0RF No Action magnesium citrate 100 mg capsule 200 mg PO DAILY citalopram 30 mg capsule 40 mg PO DAILY [facility] 28-1-300 mg capsule 1 cap PO DAILY Stand Alone Forms: ED Work / School Excuse Primary Care Provider: Carolann Nicole Referrals: Tonya Blanchard MD [Med Staff - Active Staff] - Care Physician,No Primary [Non-Staff] - Activity Restrictions/Additional Instructions: Thank you for trusting us with your care today! Your presentation today is likely related to a passed kidney stone. Please take Tylenol (2 pills, 650 mg), ibuprofen (2 pills, 400 mg) every 6 hours as needed for pain and fever control. If the above regimen does not control your pain please take oxycodone as needed for breakthrough pain. Please take Zofran as needed for nausea vomiting control. Please return to the emergency department if your symptoms change or worsen. Please follow with your primary care physician for further outpatient evaluation and management. Print Language: Ukrainian Disposition Disposition: Home, Self Care
[2023-10-29] MEDS: 0.9% Normal Saline (1000mL) 1,000 ML 999 ML IV (12:38)
[2023-10-29] MEDS: Ondansetron 4 MG/2 ML Vial IV (12:39)
[2023-10-29] MEDS: Morphine 2 MG/ML Syringe IV (12:39)
[2023-10-29] MEDS: Ketorolac 15 MG/ML Vial IV (12:39)
--- NOTE | 2023-10-29 12:43 | CT_ITS ---
EXAM: CT ABDOMEN AND PELVIS WITHOUT INTRAVENOUS CONTRAST CLINICAL INDICATION: Kidney Stone TECHNIQUE: Helically acquired images were obtained of the abdomen and pelvis without intravenous contrast. This CT exam was performed using one or more of the following dose reduction techniques: automated exposure control, adjustment of the mA and/or kV according to patient size, and/or use of iterative reconstruction technique. COMPARISON: CT Abdomen Pelvis dated 07/12/2023 FINDINGS: LOWER THORAX: Normal. Lung bases are clear. No cardiomegaly. No pericardial effusion. ABDOMEN: LIVER: Normal. Homogeneous. GALLBLADDER AND BILE DUCTS: Normal. No calcified gallstones. No gallbladder distention or wall edema. No intra- or extrahepatic biliary ductal dilation. PANCREAS: Normal. No focal cystic mass. SPLEEN: Normal. Normal size without focal cystic or solid mass. ADRENALS: Normal. No nodules. KIDNEYS AND URETERS: Persistent marked right hydronephrosis and hydroureter residual 5 mm calcification at the right ureterovesical junction suggestive of an obstructive stone. Small stones present within both kidneys. STOMACH AND BOWEL: Normal. No bowel distention. No focal inflammatory change. PELVIS: APPENDIX: No evidence of acute appendicitis. BLADDER: Normal. REPRODUCTIVE: Unremarkable as visualized. No mass. ABDOMEN and PELVIS: INTRAPERITONEAL SPACE: Normal. No ascites or other fluid collection. No free air. BONES/JOINTS: No suspicious lytic or blastic abnormality. SOFT TISSUES: Normal. No discrete abdominal or pelvic wall hernia. VASCULATURE: Normal. Abdominal aorta is non-dilated. LYMPH NODES: Normal. No enlarged lymph nodes. CT/Abdomen/Pelvis without Cont IMPRESSION: 1. Marked right hydronephrosis and hydroureter secondary to a 5 mm stone at the right ureterovesical junction. 2. Bilateral nephrolithiasis. Electronically Signed: Jose Caruso MD at 13:21 EDT ,
[2023-10-29 13:23] LABS: Bacteria 0 SEEN /hpf (None Seen)
[2023-10-29 13:27] VITALS: BP 111/64; PULSE 64; RESP 18; O2SAT 99
[2023-10-29 13:38] LABS: Color, Urine Yellow (Yellow); Glucose, Dipstick Normal (Normal); Ketone-Dipstick 15 mg/dl (Negative); Leukocyte Esterase-Dipstick 25 /ul (Negative); Nitrite-Dipstick Negative (Negative); Occult Blood-Urine 150 /ul (Negative); Protein-Dipstick 30 mg/dl (Negative); Specific Gravity, Urine 1.025 (1.002-1.030); Urine Bilirubin Dipstick Negative (Negative); Urine Clarity Sl. Cloudy (Clear); Urine Urobilinogen Normal (Normal)
[2023-10-29 13:44] LABS: Mucous, Urine 2+ /hpf (<or=2+); Red Blood Cells-Urine 10-25 SEEN /hpf (0-5); Squamous Epithelial Cells - UA 0-5 SEEN /hpf (5-10); White Blood Cells 0-5 SEEN /hpf (0-5)
[2023-10-29 14:00] VITALS: RESP 18
[2023-10-29 14:00] LABS: Absolute Lymphocyte Count 1.41 X10^3/uL (0.83-4.51); Absolute Neutrophil Count 5.8 X10^3/uL (2.0-7.7); Basophil# 0.05 X10^3/uL; Basophil% 0.6 % (0-1); Eosinophil# 0.09 X10^3/uL; Eosinophils% 1.2 % (0-5); Hematocrit 38.4 % (37-47); Hemoglobin 12.3 g/dL (12.0-15.0); Lymphocyte # 1.41 X10^3/ul (0.83-4.51); Lymphocyte % 18.3 % (19-41); Mean Corpuscular Hgb 27.9 pg (27.0-32.0); Mean Corpuscular Volume 87.1 fL (81-99); Mean Platelet Vol. 9.5 fl (6.2-12.0); Monocyte# 0.38 X10^3/uL; Monocyte% 4.9 % (0-10); NRBC Flagged by Analyzer 0 % (0-5); Neutrophil # 5.77 X10^3/uL (2.7-7.7); Neutrophil % 74.9 % (47-70); Platelet Count 358 K/mm3 (150-450); RBC Distribution Width CV 12.7 % (11.6-14.6); Red Blood Count 4.41 M/mm3 (4.2-5.4); White Blood Count 7.7 K/mm3 (4.4-11.0)
[2023-10-29 14:15] LABS: Anion Gap 6 (5-15); BUN 15 mg/dL (7-18); BUN/Creat Ratio 15.5 RATIO (10-20); Calcium,Total 8.9 mg/dL (8.5-10.1); Chloride 108 mmol/L (98-107); Creatinine, Serum 0.97 mg/dL (0.55-1.02); EST Glomerular Filtration Rate 71 mL/min (>60); Est Glom Filt Rate - Afr Amer 86 mL/min (>60); Estimated Creatinine Clearance 75.62 ml/min; Glucose 105 mg/dL (74-106); Potassium 3.6 mmol/L (3.5-5.1); Sodium Level 138 mmol/L (136-145)
[2023-10-29 14:46] VITALS: BP 129/76; PULSE 64; RESP 15; TEMP 36.7; O2SAT 99
== END 2023-10-29 14:47 | disposition home or self-care (01) ==
PROVIDERS: Emergency Provider Emergency Medicine; PCP Family Medicine; Visit Provider Emergency Medicine
DX: N13.2 Hydronephrosis with renal and ureteral calculous obstruction (principal)
CPT/HCPCS: 74176; 80048; 81001; 84703; 85025; 96374; 96375; 96376; 99283; J7030; A4216; J2405